=== PATIENT | male | born 1995 | race Caucasian/White ===

== ENCOUNTER 2021-03-27 12:40 | Emergency (ER) | payer MEDICAID, SELFPAY ==
--- NOTE | ~2021-03-27 | XR_ITS ---
EXAMINATION: XR LUMBOSACRAL SPINE CLINICAL INFORMATION: Low back pain COMPARISON: Previous lumbar spine x-ray June 2016 TECHNIQUE: Three views of the lumbosacral spine. FINDINGS: There is mild curvature of the lumbar spine to the left. Bone alignment is otherwise normal. No fracture or dislocation is seen. Disc spaces are normal. XR/XR lumbar spine 2-3V IMPRESSION: Mild curvature of the lower lumbar spine to the left.
[2021-03-27 13:01] VITALS: BP 135/69; PULSE 82; RESP 18; TEMP 36.6; O2SAT 97; BMI 34.8
[2021-03-27] MEDS: Ketorolac Tromethamine 30 MG/ML VIAL IM (13:11)
--- NOTE | 2021-03-27 13:29 | ED.BACK ---
HPI - Back Pain/Injury General Chief Complaint: Back Pain/Injury Stated Complaint: BACK PAIN Time Seen by Provider: 03/27/21 13:05 Source: patient Mode of arrival: ambulatory Limitations: no limitations History of Present Illness HPI Narrative: Patient presents to ED for back pain exacerbation. Patient has history of chronic back issues. Patient states this morning he bent down to dry his feet while getting up he felt sudden back pain. Patient denies falling to the ground, flank pain, abdominal pain, nausea, vomiting, dysuria, hematuria, testicular pain, fever, chills. Patient states pain is worse when he moves. Patient denies any urinary/bowel incontinence. Related Data Previous Rx's Medication Instructions Recorded cyclobenzaprine 10 mg PO TID PRN #18 tab 03/27/21 naproxen 500 mg PO BID PRN #28 tab 03/27/21 Allergies Allergy/AdvReac Type Severity Reaction Status Date / Time No Known Allergies Allergy Verified 03/27/21 13:03 Review of Systems Review of Systems: Yes all other systems are reviewed and are negative Constitutional: Constitutional: Reports as per HPI and Reports no additional constitutional complaints Eyes: Eyes: Reports as per HPI and Reports no additional eye complaints ENT: Reports system reviewed and no additional complaints, except as documented and Reports as per HPI Cardiovascular: Cardiovascular: Reports as per HPI and Reports no additional cardiovascular complaints Respiratory: Respiratory: Reports as per HPI and Reports no additional respiratory complaints Gastrointestinal: Gastrointestinal: Reports as per HPI and Reports no additional gastrointestinal complaints Genitourinary: Genitourinary: Reports no additional male genitourinary complaints and Reports as per HPI Musculoskeletal: Musculoskeletal: Reports no additional musculoskeletal complaints, Reports as per HPI and Reports back pain Neurologic: Reports system reviewed and no additional complaints, except as documented and Reports as per HPI Psychiatric: Psychiatric: Reports no additional psychiatric complaints and Reports as per HPI PMF Past Medical History Medical History (Updated 03/27/21 @ 14:36 by ANDREW Haq) No known health problems Social History Social History Advance Directives: No Advance Directives Information Provided: Yes Physical Exam Vital Signs: Vital Signs: Last Vital Signs Temp 97.9 F 03/27/21 13:01 Pulse 82 03/27/21 13:01 Resp 18 03/27/21 13:55 BP 135/69 03/27/21 13:01 Pulse Ox 97 05/10/21 13:01 Body Mass Index 34.8 Const: General: cooperative, healthy appearing, comfortable, no acute distress, well developed, alert, awake and Physically active Orientation/consciousness: patient oriented x3 HENMT: Head: Yes normal to inspection, Yes No palpable skull fracture present, Yes normocephalic and Yes atraumatic Eyes: General: appearance normal, both eyes and all related structures Neck: Neck: Yes normal visual inspection, Yes full ROM, Yes no lymphadenopathy, Yes no meningeal signs, Yes trachea midline, Yes supple and No tender Chest: Chest palpation & inspection: normal inspection of the chest and normal palpation of entire chest wall Resp: Effort & Inspection: normal respiratory effort and able to speak in complete sentences Auscultation: clear to auscultation bilaterally Cardio: Jugular venous distension: no JVD Heart sounds: S1 normal heart sound present and S2 normal heart sound present GI: Inspection: Yes normal to inspection and No abdominal wall ecchymosis Palpation (GI): Soft to palpation, not firm, nontender, no guarding and not rigid : General: No CVA tenderness and Yes no CVA tenderness Back/Spine/Pelvis: Back: no CVA tenderness, No CVA tenderness and back tenderness (lunbar spine tenderness) Skin: General skin exam: no rashes or lesions noted and elasticity normal Neuro: General: patient oriented x3, no meningeal signs and CN's II-XI intact bilaterally Extrem: General: Yes normal to inspection and Yes full ROM Psych: Appearance: grossly normal, well kempt and not disheveled Course Course Course Narrative: History physical exam indicate backs strain/muscle spasm. Not suspecting cord compression. Will give Toradol Reevaluation(s) Reevaluation #1: X-ray negative for any fractures or arthritis. Patient will be discharged with pain meds and muscle relaxers. Patient informed and take his father muscle relaxers. MDM - Back Pain/Injury MDM Narrative Medical decision making narrative: Back sprain Discharge Plan Discharge Clinical Impression: Low back sprain Patient Disposition: Home, Self-Care Instructions: Sprain (ED), Low Back Strain (ED) Additional Instructions: Return to the ED immediately for urinary/bowel incontinence abdominal pain, flank pain, fever, chills, testicular pain, hematuria, dysuria, nausea, vomiting, or any other concerning symptoms. Cyclobenzaprine causes drowsiness. Do not take at work or while driving. Prescriptions: New naproxen 500 mg tablet 500 mg PO BID PRN (Reason: pain) Qty: 28 RF: 0 cyclobenzaprine 10 mg tablet 10 mg PO TID PRN (Reason: back strain) Qty: 18 RF: 0 Referrals: Po,Jeanette Joseph MD [Primary Care Provider] - 2 days (Back sprain) Stand Alone Forms: Work/School Release Interventions: ED Discharge Assessment Last Done: 03/27/21 14:39 Discharge Date/Time: 03/27/21 14:45 Print Language: Citizen Of [place]
[2021-03-27 13:55] VITALS: RESP 18
== END 2021-03-27 14:45 | disposition home or self-care (01) ==
PROVIDERS: Emergency Provider Emergency Medicine; PCP Internal Medicine
DX: M54.5 Low back pain (principal); Z79.899 Other long term (current) drug therapy
CPT/HCPCS: 72100; 96372; 99283; 99284; J1885

== ENCOUNTER 2021-06-23 11:00 | Outpatient (RCR) | payer OTHER, SELFPAY ==
--- NOTE | 2021-06-21 15:39 | MHC.PT.EP ---
[facility] [place] Office [place] Office [place] Office [address] [phone] F: [phone] F: [phone] F: [phone] F: [phone] Physical Therapy Plan of Care Date of Evaluation: Date of Surgery: Diagnosis: thoracolumbar/ lumbosacral pain Assessment: pt is a 26 yo/m referred to PT for eval/treat for thoracolumbar and lumbopelvic pain. S/S consistent with lumbar and cervical dysfunction resulting in limiting pt from lifting heavy weights off of the floor and difficulty sleeping secondary to pain in low back and neck, limited R cervical rotation ROM, B lumbar rotation and flexion ROM, decreased neck and abdominal muscular strength while increased tissue tension of L QL and eractae spinae. pt also presents with increased thoracic kyphosis and decreased lumbar flexion. Pt is deemed an appropriate candidate to receive skilled PT in order to address his physical limitations to improve his functional ability. Frequency and Duration: The patient will be seen 2x/wk for 5wk Short Term Goals: initiate HEP with evidence of compliance pt will be able to do normal work tasks w/ minimal pain Fdc Goals: pt will report to PT that because of my, my sleep is only 1/2 of my normal amount; initial rating pain prevents me from sleeping at all (Andrew) pt will report to PT that he will be able to lift heavy weight without increased pain; initial rating - pain prevents me from lifting heavy weights off of the floor (Andrew) Treatment Plan: Modalities to reduce pain, spasms and effusion. Manual therapy to restore motion and function. Therapeutic exercise to improve strength and flexibility. Neuromuscular re-education for posture and balance. Therapeutic activities to return to functional activities of daily living. Electronically signed by: Jose Bernabe PT Please sign and return to therapist. Thank you for your referral.
--- NOTE | 2021-07-28 09:25 | MHC.PT.DC ---
[facility] [place] Office [place] Office [place] Office [address] [facility] [phone] F: [phone] F: [phone] F: [phone] F: [phone] Physical Therapy Discharge Report Diagnosis: thoracolumbar/ lumbosacral pain Date of Surgery: Date of Evaluation: 06/21/21 Date of Discharge: 07/28/21 Treatments to Date: 2 Cancellations to Date: No Shows to Date: Discharge Status: Patient Elected to Stop Discharge Summary: pt kirit all activities w/o pain, pt progressed to higher resistance w/ TB. pt ed about active standing during all activities. Electronically signed by: Jose Bernabe, PT Please sign and return to therapist. Thank you for your referral.
== END 2021-07-28 09:26 | disposition home or self-care (01) ==
LOC: HO.PTCHIC 11:00
PROVIDERS: PCP Internal Medicine; Visit Provider Internal Medicine
DX: M51.9 Unspecified thoracic, thoracolumbar and lumbosacral intervertebral disc disorder (principal); M54.5 Low back pain
CPT/HCPCS: 97110; 97161

== ENCOUNTER 2021-08-10 12:05 | Outpatient (REF) | payer OTHER, SELFPAY ==
--- NOTE | 2021-08-10 12:11 | EEG_ITS ---
This is a 16-channel EEG with an EKG lead. The patient is reported awake during the tracing. Background EEG rhythm is 10 to 12 hertz, 5 to 30 microvolt posteriorly, low amplitude fast anteriorly. Photic stimulation does not produce any significant abnormality. Hyperventilation is not performed. Cardiac lead does not reveal any significant abnormality. No sharp wave spikes or paroxysmal tendencies noted. IMPRESSION: Unremarkable EEG. MD HESHAM Cervantes/NANCY / [phone]
== END 2021-08-10 12:06 | disposition home or self-care (01) ==
LOC: HO.NEURO 12:05
PROVIDERS: PCP Internal Medicine; Visit Provider Internal Medicine
DX: R56.9 Unspecified convulsions (principal)
CPT/HCPCS: 95816

== ENCOUNTER 2022-01-03 08:28 | Outpatient (REF) | payer OTHER, SELFPAY ==
[2022-01-03 08:43] LABS: MANUAL DIFF FLAG NO
[2022-01-03 09:09] LABS: Basophils Percent Auto 0.2 % (0-2); Eosinophils Absolute Auto 0.1 X10*3/uL (0.0-0.4); Eosinophils Percent Auto 2.2 % (0-4); Hematocrit 46.1 % (42.0-52.0); Imm Gran Abs Auto 0.01 X10*3/uL (0.00-0.03); Imm Gran Pct Auto 0.2 % (0.0-0.4); Lymphocytes Absolute Auto 1.7 X10*3/uL (1.2-4.9); Lymphocytes Percent Auto 29.9 % (20-40); Mean Corpuscular HGB Conc 34.7 g/dl (31.0-36.0); Mean Corpuscular Hemoglobin 29.2 pg (27.0-33.0); Mean Corpuscular Volume 84.1 fL (80.0-98.0); Mean Platelet Volume 9.3 fL (9.4-12.4); Monocytes Absolute Auto 0.5 X10*3/uL (0.1-1.2); Monocytes Percent Auto 9.3 % (2-11); Neutrophils Absolute Auto 3.4 x10*3/uL (2.0-8.3); Neutrophils Percent Auto 58.2 % (45-73); Platelet Count 340 X10*3/uL (160-400); Red Blood Count 5.48 X10*6/uL (4.60-5.80); Red Cell Distribution Width 12.5 % (11.0-16.0); White Blood Count 5.8 X10*3/uL (4.8-10.8)
[2022-01-03 09:44] LABS: Alanine Aminotransferase 26 U/L (0-40); Albumin Level 4.7 g/dL (3.5-5.0); Alkaline Phosphatase 51 U/L (39-117); Anion Gap 10 (12-20); Aspartate Amino Transferase 25 U/L (5-37); Bilirubin Total 1.2 mg/dL (0.0-1.0); Blood Urea Nitrogen 12 mg/dL (9-16); Carbon Dioxide 27 mmol/L (22-29); Chloride 105 mmol/L (96-108); Cholesterol 177 mg/dL; Estimated Glomerular Filt Rate > 60; Glucose Random 103 mg/dL (60-115); HDL Cholesterol 37 mg/dL; LDL Cholesterol Calculated 122 mg/dl; Potassium 4.4 mmol/L (3.3-5.1); Sodium 138 mmol/L (135-145); Total Protein 7.5 g/dL (6.5-8.0); Triglycerides 91 mg/dL
[2022-01-03 10:04] LABS: Free T4 (Free Thyroxine) 0.88 ng/dL (0.71-1.85); Thyroid Stimulating Hormone 0.61 uIU/mL (0.32-4.0)
[2022-01-03 10:20] LABS: Folate > 20.0 ng/mL (> or = 4.0); Vitamin B12 586 pg/mL (200-900)
[2022-01-03 10:47] LABS: Appearance Urine CLEAR; Color Urine YELLOW; Glucose Urine UA NEG (NEG); Leukocyte Esterase Urine NEG (NEG); Nitrite Urine NEG (NEG); PH 6.5 (5.0-8.0); Specific Gravity - Urine 1.025 (1.005-1.025); Urine Blood TRACE (NEG); Urine Ketones 15 MG/DL (NEG); Urine Protein NEG (NEG-TRACE)
[2022-01-03 11:10] LABS: WBC Urine 0-2 /HPF (0-4)
[2022-01-03 11:11] LABS: Bacteria Urine TRACE /LPF; Squamous Epithelial Cell Urine TRACE /LPF
[2022-01-03 11:12] LABS: Mucus Urine TRACE /LPF
== END 2022-01-03 08:29 | disposition home or self-care (01) ==
LOC: HO.LAB 08:28
PROVIDERS: PCP Internal Medicine; Visit Provider Internal Medicine
DX: E66.9 Obesity, unspecified (principal); E78.00 Pure hypercholesterolemia, unspecified
CPT/HCPCS: 36415; 80053; 80061; 81001; 82607; 82746; 84439; 84443; 85025

== ENCOUNTER 2023-06-28 15:48 | Outpatient (AMB) | payer OTHER, SELFPAY ==
[2023-06-28 15:52] VITALS: BP 138/90; PULSE 65; O2SAT 97; BMI 42.7
--- NOTE | 2023-06-28 15:52 | MHC.PC.OV ---
Vital Signs 06/28/23 15:52 Height 5 ft 11 in Weight 306 lb BMI 42.7 BP 138/90 H Blood Pressure Location Lt brachial Position Sitting Pulse 65 Pulse Source Pulse Oximeter Temp Source Skin Pulse Oximetry (%) 97 Oxygen Delivery Method Room Air Intake Visit Reasons: PE Intake Note: Patient is here today for a physical. Interline Clerk Required: No Allergies house dust Allergy (Mild, Verified 06/28/23 15:52) Sneezing, sore throat Medication List - Last Reconciled 06/28/23 by Jeanette Martinez MD [id number] 250-250-65 mg (Excedrin Migraine) 1 tab PO Q4-6H PRN blood pressure monitor (Blood Pressure Kit) As directed Tobacco use date assessed: 06/28/23 Dental Screening Dental Screen Date: 06/28/23 Did you have a dental visit in the last 12 months?: Yes Did you have a dental problem in the last 6 months where you did not have access to dental care?: No Was dental information given to patient?: Patient has dentist HPI PE HPI Details 28-year-old morbidly obese male with restless leg syndrome impaired glucose tolerance labile hypertension coming in for physical exam patient was last seen in January 2023 has mild obstructive sleep apnea and neck pain patient is here for follow-up adjustment of blood pressure medication recently done. BP at home- has been good and decline taking med PFSH Medical History Erectile dysfunction Insomnia Inverse psoriasis Laceration of left knee with foreign body No known health problems Obesity (BMI 30-39.9) Seizures Tinea cruris Surgical History (Updated 06/25/22 @ 15:45 by GLADYS Nguyen) No pertinent past surgical history Family History Maternal Grandmother Heart attack Paternal Grandmother Breast cancer Other Diabetes Hypertension Social History (Updated 06/28/23 @ 16:15 by Jeanette Martinez MD) Housing: Apartment Alcohol intake: current Alcohol intake frequency: holidays/special occasions only Patient Tobacco Use Status: Former Tobacco user Years Smoked: quit 6 week week and cigarettes 20 years old stopped e-Cigarette/Vaping Use: Never Used Second Hand Smoke Exposure: Yes Substance Use Type: Marijuana service: No Current occupational status: employed Cognitive needs: No Hearing needs: No Vision needs: Yes Questionnaire PHQ-9 Over the last 2 weeks, how often have you been bothered by any of the following problems? 1. Little interest or pleasure in doing things: not at all 2. Feeling down, depressed, or hopeless: nearly every day 3. Trouble falling or staying asleep, or sleeping too much: nearly every day 4. Feeling tired or having little energy: nearly every day 5. Poor appetite or overeating: nearly every day 6. Feeling bad about yourself - or that you are a failure or have let yourself or your family down: several days 7. Trouble concentrating on things, such as reading the newspaper or watching television: not at all 8. Moving or speaking so slowly that other people could have noticed. Or the opposite - being so fidgety or restless that you have been moving around a lot more than usual: not at all 9. Thoughts that you would be better off or of hurting yourself in some way: not at all Total score: 13 Depression Screening Interpretation: Positive Source: Developed by Drs. Brady Garibay, Jodi Gill, Abdi Hardy and colleagues, with an educational trinity from [employer]. Thrive Questionnaire Date Thrive assessed: 01/22/23 AUDIT C Alcohol Use Questionnaire (AUDIT-C) 1. How often do you have a drink containing alcohol?: Monthly or less 2. How many drinks containing alcohol do you have on a typical day when you are drinking?: 1 or 2 3. How often do you have six or more drinks on one occasion?: Never Total Score: 1 LYRIC-7 AMB Questionnaire LYRIC-7 Date LYRIC - 7 assessed: 06/28/23 Feeling nervous, anxious, or on edge: 2 = More than half the days Not being able to stop or control worryin = More than half the days Worrying too much about different things: 2 = More than half the days Trouble relaxin = Not at all Being so restless that it is hard to sit still: 2 = More than half the days Becoming easily annoyed or irritable: 0 = Not at all Feeling afraid as if something awful might happen: 0 = Not at all Total LYRIC-7 score (0-4 normal; 5-9 mild; 10-14 moderate; 15-21 severe): 8 Source: Developed by Drs. Brady Garibay, Jodi Gill, Abdi Hardy and colleagues, with an educational trinity from [employer]. Review of Systems Const Denies poor appetite and Denies weakness Eyes Denies no additional complaints ENT Reports Normal hearing present, Denies dizziness, Denies nasal congestion, Denies tinnitus and Denies sore throat Card Denies chest pain, Denies syncope, Denies rapid heart rate and Denies dyspnea Resp Denies cough and Denies dyspnea GI Denies change in stool character, Reports constipation, Denies diarrhea, Denies nausea and Denies vomiting Denies dysuria and Denies urinary frequency Neuro Reports Normal hearing present, Denies confusion, Denies dizziness, Denies syncope and Denies weakness Psych Denies confusion Physical exam (Primary Care) Vital Signs: Last Vital Signs Pulse 65 06/28/23 15:52 BP 138/90 H 06/28/23 15:52 Pulse Ox 97 06/28/23 15:52 Oxygen Delivery Method Room Air 06/28/23 15:52 BMI result Body Mass Index 42.7 Tobacco/Smoking Status: Tobacco use Status Tobacco use date assessed 06/28/23 06/28/23 15:53 Patient Tobacco Use Status Former Tobacco user 06/28/23 15:53 e-Cigarette/Vaping Use Never Used 06/28/23 15:53 PHQ-9: PHQ-9 Score PHQ-9: Total score 13 06/28/23 16:06 Depression Screening Interpretation: Positive Thrive Assessment: Date of Thrive Assessment Date Thrive assessed 01/22/23 06/28/23 15:53 Const General: No confusion Orientation/consciousness: No confusion HENMT Head: Yes normocephalic Ears: external ears normal and TM's normal bilaterally Face and sinus: Yes normal facial exam Mouth: moist mucous membranes Throat: Yes tonsils normal Eyes Conjunctivae: conjunctivae normal Pupils: Equal, round and reactive pupils present and Pupil accommodation reflex normal Direct Ophthalmoscopy: normal light reflex Neck Neck: No lymphadenopathy Thyroid: Thyroid normal Chest Chest palpation & inspection: normal inspection of the chest Resp Other: fine wheezing noted Effort & Inspection: normal respiratory effort Auscultation: no crackles, wheezes and lung sounds not diminished Cardio Rate: regular rate Rhythm: regular rhythm Peripheral pulses: radial pulses present and dorsalis pedis present GI Other: visual negative Palpation (GI): no masses Auscultation: normal bowel sounds and normoactive bowel sounds Rectal Exam - Male: Yes deferred Other: groin dry scaly rash Skin General skin exam: no rashes or lesions noted Rashes: no rashes Neuro General: No confusion Cranial nerves: Yes Equal, round and reactive pupils present and Yes Normal hearing present Cognition (Neuro): normal cognition Gait exam (Neuro): Normal gait present Motor exam (neuro): 5/5 motor strength present throughout Deep tendon reflexes (DTR's): Right brachioradialis reflex intensity grade: 2+, Left brachioradialis reflex intensity grade: 2+, Right patellar reflex intensity grade: 2+ and Left patellar reflex intensity grade: 2+ Extrem General: No edema Assessment and Plan Assessment & Plan (1) Annual physical exam: Code(s): Z00.00 - Encounter for general adult medical examination without abnormal findings (2) Labile hypertension: Code(s): R09.89 - Other specified symptoms and signs involving the circulatory and respiratory systems Plan: Continue with blood pressure medication. Decrease salt intake and exercise placed on lisinopril 10 mg once a day reminded to get blood work done (3) Impaired fasting blood sugar: Code(s): R73.01 - Impaired fasting glucose Plan: Decrease the amount of carbohydrate intake, pasta, bread, rice and potatoes are all sugar and that is aside from all the sweet stuff, remember that fruits are good but they are Sweet also. (4) Restless leg syndrome: Code(s): G25.81 - Restless legs syndrome (5) Mild obstructive sleep apnea: Comment: cannot tolerate CPAP Code(s): G47.33 - Obstructive sleep apnea (adult) (pediatric) (6) Generalized anxiety disorder: Code(s): F41.1 - Generalized anxiety disorder (7) Hematuria: Code(s): R31.9 - Hematuria, unspecified (8) Hearing difficulty: Code(s): H91.90 - Unspecified hearing loss, unspecified ear (9) Tinea cruris: Code(s): B35.6 - Tinea cruris Orders: Orders UA CC w/rflx Micro + Cult Today R30.0 - Dysuria, R31.9 - Hematuria, unspecified Referrals Speech and Hearing Referral H91.90 - Unspecified hearing loss, unspecified ear Medications: New clotrimazole 1% 1 appl topical BID 45 grams 0RF 4 weeks B35.6 - Tinea cruris Coding Level of Care Code New Pt Prev Care [id number] Diagnoses Annual physical exam Z00.00 Labile hypertension R09.89 Impaired fasting blood sugar R73.01 Restless leg syndrome G25.81 Mild obstructive sleep apnea G47.33 Generalized anxiety disorder F41.1 Hematuria R31.9 Hearing difficulty H91.90 Tinea cruris B35.6
== END 2023-06-28 16:40 | disposition home or self-care (01) ==
PROVIDERS: PCP Internal Medicine; Visit Provider Internal Medicine
DX: Z00.00 Encounter for general adult medical examination without abnormal findings (principal); R09.89 Other specified symptoms and signs involving the circulatory and respiratory systems; R73.01 Impaired fasting glucose; G25.81 Restless legs syndrome; G47.33 Obstructive sleep apnea (adult) (pediatric); F41.1 Generalized anxiety disorder; R31.9 Hematuria, unspecified; H91.90 Unspecified hearing loss, unspecified ear; B35.6 Tinea cruris
CPT/HCPCS: 99385; 99395

== ENCOUNTER 2023-06-29 10:08 | Outpatient (REF) | payer OTHER, SELFPAY ==
[2023-06-29 10:37] LABS: MANUAL DIFF FLAG NO
[2023-06-29 11:16] LABS: Estimated Average Glucose 94 mg/dL; Hemoglobin A1c % 4.9 %
[2023-06-29 11:19] LABS: Basophils Percent Auto 0.2 % (0-2); Eosinophils Absolute Auto 0.3 X10*3/uL (0.0-0.4); Hematocrit 45.1 % (42.0-52.0); Hemoglobin 15.7 g/dl (14.0-18.0); Imm Gran Abs Auto 0.04 X10*3/uL (0.00-0.03); Imm Gran Pct Auto 0.4 % (0.0-0.4); Lymphocytes Absolute Auto 2.7 X10*3/uL (1.2-4.9); Lymphocytes Percent Auto 30.1 % (20-40); Mean Corpuscular HGB Conc 34.8 g/dl (31.0-36.0); Mean Corpuscular Hemoglobin 28.5 pg (27.0-33.0); Mean Platelet Volume 9.4 fL (9.4-12.4); Monocytes Absolute Auto 0.9 X10*3/uL (0.1-1.2); Monocytes Percent Auto 9.7 % (2-11); Neutrophils Absolute Auto 5.1 x10*3/uL (2.0-8.3); Neutrophils Percent Auto 56.6 % (45-73); Platelet Count 345 X10*3/uL (160-400); Red Cell Distribution Width 12.5 % (11.0-16.0)
[2023-06-29 11:24] LABS: Appearance Urine Clear; Color Urine Yellow; Glucose Urine UA Negative (Negative); Leukocyte Esterase Urine Negative (Negative); Nitrite Urine Negative (Negative); PH 5.5 (5.0-9.0); Specific Gravity - Urine 1.025 (1.005-1.025); UMIC TRIGGER UACC YES; Urine Blood Trace (Negative); Urine Ketones Negative (Negative); Urine Protein Negative (Neg-Trace)
[2023-06-29 11:39] LABS: Bacteria Urine None Seen (None Seen); Hyaline Casts Urine 0-2 /LPF (0-2); Squamous Epithelial Cell Urine 0-2 /HPF (0-2); WBC Urine 0-5 /HPF (0-5)
[2023-06-29 11:56] LABS: Alanine Aminotransferase 33 U/L (0-40); Albumin Level 4.5 g/dL (3.5-5.0); Alkaline Phosphatase 50 U/L (39-117); Anion Gap 11 (12-20); Aspartate Amino Transferase 23 U/L (5-37); Bilirubin Total 0.6 mg/dL (0.0-1.0); Blood Urea Nitrogen 11 mg/dL (9-16); Calcium 10.1 mg/dL (8.4-10.2); Carbon Dioxide 27 mmol/L (22-29); Chloride 107 mmol/L (96-108); Cholesterol 145 mg/dL; Estimated Glomerular Filt Rate > 60; Glucose Random 98 mg/dL (60-115); HDL Cholesterol 30 mg/dL; LDL Cholesterol Calculated 79 mg/dl; Potassium 4.1 mmol/L (3.3-5.1); Sodium 141 mmol/L (135-145); Total Protein 7.4 g/dL (6.5-8.0); Triglycerides 180 mg/dL
[2023-06-29 12:00] LABS: Free T4 (Free Thyroxine) 0.89 ng/dL (0.71-1.85); Thyroid Stimulating Hormone 1.28 uIU/mL (0.32-4.0)
[2023-06-29 12:16] LABS: Folate 13.7 ng/mL (> or = 4.0); Vitamin B12 502 pg/mL (200-900)
== END 2023-06-29 10:09 | disposition home or self-care (01) ==
LOC: HO.LAB 10:08
PROVIDERS: PCP Internal Medicine; Visit Provider Internal Medicine
DX: R73.01 Impaired fasting glucose (principal); E78.00 Pure hypercholesterolemia, unspecified
CPT/HCPCS: 36415; 80053; 80061; 81001; 82607; 82746; 83036; 84439; 84443; 85025

== ENCOUNTER 2023-07-09 11:15 | Outpatient (REF) | payer OTHER, SELFPAY ==
--- NOTE | ~2023-07-09 | US_ITS ---
EXAMINATION: US RETROPERITONEAL LIMITED (RENAL ONLY) CLINICAL INFORMATION: Hematuria, unspecified. COMPARISON: X-ray abdomen KUB 06/23/2018. TECHNIQUE: Real-time imaging of the kidneys. Limited visualization due to bowel gas. FINDINGS: RIGHT KIDNEY: 11.4 x 6.4 x 6.6 cm (SAG x AP x TRV). No hydronephrosis. No renal calculi. Renal cortical thickness is normal. Limited visualization. LEFT KIDNEY: 13.0 x 5.9 x 5.7 cm (SAG x AP x TRV). No hydronephrosis. No renal calculi. Renal cortical thickness is normal. Limited visualization. US/US renal BI IMPRESSION: No hydronephrosis. No renal calculi. Renal cortical thickness is normal. Limited visualization. CT scan could be considered for further evaluation for this patient with hematuria.
== END 2023-07-09 11:16 | disposition home or self-care (01) ==
LOC: HO.US 11:15
PROVIDERS: PCP Internal Medicine; Visit Provider Internal Medicine
DX: R31.9 Hematuria, unspecified (principal)
CPT/HCPCS: 76775

== ENCOUNTER 2023-08-12 09:45 | Outpatient (REF) | payer OTHER, SELFPAY ==
--- NOTE | ~2023-08-12 | CT_ITS ---
EXAMINATION: CT ABDOMEN AND PELVIS WITHOUT AND WITH CONTRAST CLINICAL INFORMATION: Hematuria. COMPARISON: Renal ultrasound 07/09/2023. TECHNIQUE: Multidetector volumetric imaging was performed of the abdomen and pelvis before and after the IV administration of 85 mL of Omnipaque 350 intravenous contrast. Sagittal and coronal reformatted images were obtained on the technologist's workstation. This CT examination was performed using dose optimization techniques as appropriate, variously including the following: *Automated exposure control *Adjustment of mA and/or kV according to patient size (this includes techniques or standardized protocols for targeted exams where dose is matched to indication/reason for exam; i.e. extremities or head) *Use of iterative reconstruction technique DLP: 1496 mGy-cm. FINDINGS: LUNG BASES: The visualized lung bases are unremarkable. LIVER, GALLBLADDER, AND BILIARY TREE: The liver is enlarged at 19.2 cm in cephalocaudad dimension and demonstrates decreased attenuation consistent with hepatic steatosis. Focal fatty sparing is present adjacent to the gallbladder. No focal hepatic lesion or biliary ductal dilatation is present. The gallbladder is unremarkable with no evidence of radiopaque gallstones, gallbladder wall thickening, or obvious pericholecystic inflammatory changes. PANCREAS: Unremarkable. SPLEEN: Unremarkable. ADRENAL GLANDS: Unremarkable. KIDNEYS AND URETERS: The kidneys are normal in size, shape, and attenuation. In the mid left kidney, there is a 1.1 cm mass present which on noncontrast imaging is almost isoattenuating with the surrounding kidney at 26 Hounsfield units. After IV contrast, Hounsfield units range from 14 to 45 Hounsfield units. I suspect this is a Bosniak class II cyst but the mass is too small for adequate characterization. No other renal masses. No hydronephrosis, hydroureter, or calculi seen. No perinephric stranding. BLADDER: Unremarkable. GASTROINTESTINAL TRACT: The small and large bowel are unremarkable aside from scattered colonic diverticula without diverticulitis. The appendix is unremarkable. ABDOMINAL WALL: No significant hernia is appreciated. Tiny right inguinal hernia present containing only fat. LYMPH NODES: No retroperitoneal lymphadenopathy. VASCULAR: Unremarkable. PELVIC VISCERA: The prostate and seminal vesicles are unremarkable. OSSEOUS STRUCTURES: Unremarkable. CT/CT abdomen pelvis wo/w IV con IMPRESSION: 1. A cause for the patient's hematuria has not been found. 2. There is a 1.1 cm mass in the left kidney which is almost isoattenuating with the surrounding kidney. I suspect this is a Bosniak class II benign cyst but the mass is too small for adequate characterization. A followup targeted ultrasound could be performed for further evaluation or alternatively, MRI should be diagnostic. 3. Enlarged fatty liver. 4. Colonic diverticulosis without diverticulitis. 5. Tiny right inguinal hernia containing only fat. Fleischner guidelines were followed.
[2023-08-12] MEDS: iohexoL 350 MG/ML 100 ML INFUS..BTL IV (10:32)
== END 2023-08-12 09:46 | disposition home or self-care (01) ==
LOC: HO.CT 09:45
PROVIDERS: Visit Provider Internal Medicine
DX: R31.9 Hematuria, unspecified (principal)
CPT/HCPCS: 74178; Q9967

== ENCOUNTER 2023-10-31 20:30 | Emergency (ER) | payer OTHER, SELFPAY ==
[2023-10-31 20:53] VITALS: BP 154/102; PULSE 82; RESP 18; TEMP 36.6; O2SAT 98; BMI 34.9
[2023-10-31 21:38] LABS: MANUAL DIFF FLAG NO
[2023-10-31 21:46] LABS: Basophils Percent Auto 0.3 % (0-2); Eosinophils Absolute Auto 0.2 X10*3/uL (0.0-0.4); Eosinophils Percent Auto 2.7 % (0-4); Hematocrit 43.6 % (42.0-52.0); Hemoglobin 15.6 g/dl (14.0-18.0); Imm Gran Abs Auto 0.02 X10*3/uL (0.00-0.03); Imm Gran Pct Auto 0.3 % (0.0-0.4); Lymphocytes Absolute Auto 2.4 X10*3/uL (1.2-4.9); Lymphocytes Percent Auto 31.1 % (20-40); Mean Corpuscular HGB Conc 35.8 g/dl (31.0-36.0); Mean Platelet Volume 9.3 fL (9.4-12.4); Monocytes Absolute Auto 0.6 X10*3/uL (0.1-1.2); Monocytes Percent Auto 8.1 % (2-11); Neutrophils Absolute Auto 4.5 x10*3/uL (2.0-8.3); Neutrophils Percent Auto 57.5 % (45-73); Platelet Count 403 X10*3/uL (160-400); Red Blood Count 5.38 X10*6/uL (4.60-5.80); Red Cell Distribution Width 12.7 % (11.0-16.0); White Blood Count 7.8 X10*3/uL (4.8-10.8)
[2023-10-31 21:57] LABS: Alanine Aminotransferase 33 U/L (0-40); Albumin Level 4.7 g/dL (3.5-5.0); Alkaline Phosphatase 60 U/L (39-117); Anion Gap 15 (12-20); Aspartate Amino Transferase 21 U/L (5-37); Bilirubin Total 0.3 mg/dL (0.0-1.0); Blood Urea Nitrogen 11 mg/dL (9-16); Calcium 10.1 mg/dL (8.4-10.2); Carbon Dioxide 25 mmol/L (22-29); Chloride 105 mmol/L (96-108); Creatinine Clr Calc Pharmacy 177.6; Estimated Glomerular Filt Rate > 60; Glucose Random 115 mg/dL (60-115); Potassium 3.6 mmol/L (3.3-5.1); Sodium 141 mmol/L (135-145); Total Protein 7.9 g/dL (6.5-8.0)
[2023-10-31 23:01] VITALS: BP 152/101; PULSE 83; RESP 14
[2023-10-31 23:12] LABS: Appearance Urine Clear; Color Urine Yellow; Glucose Urine UA Negative (Negative); Leukocyte Esterase Urine Negative (Negative); Nitrite Urine Negative (Negative); PH 5.5 (5.0-9.0); Specific Gravity - Urine 1.025 (1.005-1.025); Urine Blood Negative (Negative); Urine Ketones Negative (Negative); Urine Protein Negative (Neg-Trace)
--- NOTE | 2023-10-31 23:19 | ED.GENADULT ---
HPI - General Adult General Chief complaint: Back Pain/Injury Stated complaint: back spasm/painful sitting,walking Time Seen by Provider: 10/31/23 23:11 Source: patient, RN notes reviewed and old records reviewed Mode of arrival: ambulatory Limitations: no limitations History of Present Illness HPI narrative: 28-year-old male presents for evaluation of right lower back pain Patient reports that he had an injury about a year and half ago after a fall. He had negative x-rays at that time Patient states that he has had back pain ever since. However over the last 3-4 days he has had severe right lower back pain. The pain radiates down into his right leg He denies any bladder or bowel incontinence or retention Denies any fevers, chills pain Denies any recent falls Related Data Home Medications Medication Instructions Recorded Confirmed [id number] 1 tab PO Q4-6H PRN 06/28/23 06/28/23 mg-250 mg-65 mg tablet (Excedrin Migraine) Previous Rx's Medication Instructions Recorded blood pressure monitor (Blood #1 ea 01/02/22 Pressure Kit) clotrimazole 1 % topical cream 1 appl topical BID 4 weeks #45 06/28/23 grams dexamethasone 4 mg tablet 4 mg PO BID #6 tabs 10/31/23 tramadol 50 mg tablet 50 mg PO Q6H PRN severe pain 10/31/23 (scale score 7-10) #12 tabs Allergies Allergy/AdvReac Type Severity Reaction Status Date / Time house dust Allergy Mild Sneezing, Verified 10/31/23 21:02 sore throat Review of Systems Constitutional: Constitutional: Denies chills, Denies fever(s) and Denies headache(s) Eyes: Eyes: Denies blurry vision ENT: Denies headache(s) Cardiovascular: Cardiovascular: Denies chest pain and Denies dyspnea Respiratory: Respiratory: Denies cough and Denies dyspnea Gastrointestinal: Gastrointestinal: Denies abdominal pain Musculoskeletal: Musculoskeletal: Reports back pain, Denies numbness and Reports tingling Neurologic: Denies headache(s), Denies numbness and Reports tingling PMFSH Past Medical History Medical History (Updated 10/31/23 @ 23:22 by Julian Mehta) Tinea cruris Laceration of left knee with foreign body Seizures Inverse psoriasis Insomnia Obesity (BMI 30-39.9) Erectile dysfunction No known health problems Surgical History (Updated 06/25/22 @ 15:45 by GLADYS Nguyen) No pertinent past surgical history Family History Family History Maternal Grandmother Heart attack Paternal Grandmother Breast cancer Other Diabetes Hypertension Social History Social History (Updated 06/28/23 @ 16:15 by Jeanette Martinez MD) Housing: Apartment Alcohol intake: current Alcohol intake frequency: does not drink Patient Tobacco Use Status: Former Tobacco user Years Smoked: quit 6 week week and cigarettes 20 years old stopped e-Cigarette/Vaping Use: Never Used Second Hand Smoke Exposure: Yes Substance Use Type: Marijuana service: No Current occupational status: employed Cognitive needs: No Hearing needs: No Vision needs: Yes Physical Exam ED Vital Signs: Vital Signs - 24 hr 10/31/23 20:53 10/31/23 23:01 Temperature 97.9 F Pulse Rate 82 83 Respiratory Rate 18 14 Blood Pressure 154/102 H 152/101 H Pulse Oximetry 98 Oxygen Delivery Method Room Air BMI result Body Mass Index 34.9 Const General: healthy appearing, comfortable, no acute distress, alert and awake Nutritional Appearance: well nourished Orientation/consciousness: patient oriented x3 HENMT Head: Yes normocephalic and Yes atraumatic Eyes Eyelids: Yes eyelids normal Conjunctivae: conjunctivae normal Sclerae: sclerae normal Corneas: corneas normal Pupils: Equal, round and reactive pupils present EOM: EOMs intact bilaterally Neck Neck: Yes full ROM Resp Effort & Inspection: normal respiratory effort, able to speak in complete sentences and not labored GI Inspection: No distended Palpation (GI): Soft to palpation, not firm, nontender, no guarding and not rigid Back/Spine/Pelvis Other: Tenderness to the right lumbar sacral region. Straight leg raise positive on right. Skin General skin exam: elasticity normal Neuro Other: Strength 5/5 to the bilateral lower extremities in all major muscle groups General: patient oriented x3 Cranial nerves: Yes Equal, round and reactive pupils present and Yes Bilaterally intact EOM present Cognition (Neuro): normal cognition Extrem Other: Moving all extremities well without any obvious deformities Medical Decision Making Medical Decision Making MDM Narrative: 28-year-old male presents for evaluation of right lower back pain. He has a history of back pain. No recent injury. No warning signs for cauda equina syndrome. Patient is not an IV drug abuser. Symptoms most consistent with sciatica. Will treat with steroids and analgesia. He will follow-up with his PCP Differential Diagnosis Differential Diagnoses: The differential diagnosis associated with the presentation includes Lumbar radiculopathy Sciatica Lumbar strain Back pain Lab Data MDM Lab Attestation statement: I reviewed the patient's lab results. No leukocytosis or anemia. No significant electrolyte abnormalities. Normal renal function. UA is clear without signs of infection or hematuria 10/31/23 21:33 10/31/23 21:33 Labs: Lab Results 10/31/23 10/31/23 Range/Units 21:33 23:05 WBC 7.8 (4.8-10.8) X10*3/uL RBC 5.38 (4.60-5.80) X10*6/uL Hgb 15.6 (14.0-18.0) g/dl Hct 43.6 (42.0-52.0) % MCV 81.0 (80.0-98.0) fL MCH 29.0 (27.0-33.0) pg MCHC 35.8 (31.0-36.0) g/dl RDW 12.7 (11.0-16.0) % Plt Count 403 H (160-400) X10*3/uL MPV 9.3 L (9.4-12.4) fL Immature Gran % (Auto) 0.3 (0.0-0.4) % Neut % (Auto) 57.5 (45-73) % Lymph % (Auto) 31.1 (20-40) % Woodward % (Auto) 8.1 (2-11) % Eos % (Auto) 2.7 (0-4) % Baso % (Auto) 0.3 (0-2) % Lymph # (Auto) 2.4 (1.2-4.9) X10*3/uL Woodward # (Auto) 0.6 (0.1-1.2) X10*3/uL Eos # (Auto) 0.2 (0.0-0.4) X10*3/uL Baso # (Auto) 0.0 (0.0-0.2) X10*3/uL Abs Immat Gran (auto) 0.02 (0.00-0.03) X10*3/uL Absolute Neuts (auto) 4.5 (2.0-8.3) x10*3/uL Absolute Nucleated RBC 0.000 (0.0-0.012) X10*3/uL Nucleated RBC % (auto) 0.0 (0.0-0.2) /100WBC Sodium 141 (135-145) mmol/L Potassium 3.6 (3.3-5.1) mmol/L Chloride 105 (96-108) mmol/L Carbon Dioxide 25 (22-29) mmol/L Anion Gap 15 (12-20) BUN 11 (9-16) mg/dL Creatinine 0.80 (0.5-1.4) mg/dL Estim Creat Clear Calc 177.6 Estimated GFR > 60 Random Glucose 115 (60-115) mg/dL Calcium 10.1 (8.4-10.2) mg/dL Total Bilirubin 0.3 (0.0-1.0) mg/dL AST 21 (5-37) U/L ALT 33 (0-40) U/L Alkaline Phosphatase 60 (39-117) U/L Total Protein 7.9 (6.5-8.0) g/dL Albumin 4.7 (3.5-5.0) g/dL Urine Color Yellow Urine Appearance Clear Urine pH 5.5 (5.0-9.0) Ur Specific Crawford 1.025 (1.005-1.025) Urine Protein Negative (Neg-Trace) mg/dL Urine Glucose (UA) Negative (Negative) mg/dL Urine Ketones Negative (Negative) mg/dL Urine Blood Negative (Negative) Urine Nitrite Negative (Negative) Ur Leukocyte Esterase Negative (Negative) Discharge Plan Discharge Clinical Impression: Acute low back pain Patient Disposition: Home, Self-Care Instructions: Sciatica (ED) Additional Instructions: Your back pain is likely related to a pinched nerve called sciatica. You may use ibuprofen/Tylenol as needed for pain Use tramadol for more severe, breakthrough pain This may make you sleepy, did not drink alcohol or drive after taking it Use dexamethasone twice daily for the next 3 days Follow-up with your primary doctor You may benefit from an outpatient MRI Prescriptions: New dexamethasone 4 mg tablet 4 mg PO BID Qty: 6 0RF tramadol 50 mg tablet 50 mg PO Q6H PRN (Reason: severe pain (scale score 7-10)) Qty: 12 0RF No Action Excedrin Migraine 250-250-65 mg tablet 1 tab PO Q4-6H PRN clotrimazole 1 % cream 1 appl topical BID 28 Days Qty: 45 0RF (DME) blood pressure monitor [Blood Pressure Kit] Kit See Rx Instructions .ROUTE .MEDSUPPLY Qty: 1 0RF Rx Instructions: As directed Stand Alone Forms: Work/School Release
[2023-11-01] MEDS: dexAMETHasone 4 MG TABLET PO (00:01)
[2023-11-01] MEDS: Ketorolac Tromethamine 30 MG/ML VIAL IM (00:01)
== END 2023-11-01 00:07 | disposition home or self-care (01) ==
PROVIDERS: Emergency Provider Internal Medicine; PCP Internal Medicine
DX: M54.41 Lumbago with sciatica, right side (principal); Z79.899 Other long term (current) drug therapy; Z87.891 Personal history of nicotine dependence
CPT/HCPCS: 36415; 80053; 81003; 85025; 96372; 99284; J1885; J8540

== ENCOUNTER 2023-11-13 15:48 | Outpatient (AMB) | payer OTHER, SELFPAY ==
[2023-11-13 15:50] VITALS: BP 160/100; PULSE 100; O2SAT 96; BMI 42.1
--- NOTE | 2023-11-13 15:50 | MHC.PC.OV ---
Vital Signs 11/13/23 15:50 11/13/23 16:42 Height 5 ft 11 in Weight 302 lb BMI 42.1 BP 160/100 H 140/90 H Blood Pressure Location Lt brachial Lt brachial Position Sitting Sitting Pulse 100 Pulse Source Pulse Oximeter Pulse Oximetry (%) 96 Oxygen Delivery Method Room Air Intake Visit Reasons: Back Pain Intake Note: pt is here for ongoing back pain that been happening since oct 30 2023. pt went of the hospital the following day he was given tramadol and dexmethasone. Consumer Services Advisor Required: No Accompanied by: Self / Same As Patient Allergies house dust Allergy (Mild, Verified 11/13/23 15:50) Sneezing, sore throat Medication List - Last Reconciled 11/13/23 by Jeanette Martinez MD [id number] 250-250-65 mg (Excedrin Migraine) 1 tab PO Q4-6H PRN blood pressure monitor (Blood Pressure Kit) As directed clotrimazole 1% 1 appl topical BID 4 weeks dexamethasone 4 mg PO BID tramadol 50 mg PO Q6H PRN Tobacco use date assessed: 06/28/23 Dental Screening Dental Screen Date: 11/13/23 Did you have a dental visit in the last 12 months?: No Did you have a dental problem in the last 6 months where you did not have access to dental care?: No Was dental information given to patient?: Yes HPI Back Pain HPI Details 28-year-old obese male with hypertension impaired glucose tolerance obstructive sleep apnea mild restless leg syndrome generalized anxiety disorder last seen for physical in June 2023. Patient is here for follow-up review of the notes had ER visit for back injury lower back pain right this has been intermittently happening for about a year diagnosis the day given sciatica and was given steroids and tramadol. Patient had hematuria and a CT scan was done noted left kidney mass benign cyst patient has been advised to follow-up ultrasound. This was in July 2023 fatty liver noted diverticular disease noted and a tiny right inguinal hernia seen. Had a long discussion with the MRI result and for the lower back pain. Discussed about tramadol being 3rd line in the pain medication [facility] Medical History (Updated 11/02/23 @ 00:02 by Background Elodia) Tinea cruris Laceration of left knee with foreign body Seizures Inverse psoriasis Insomnia Obesity (BMI 30-39.9) Erectile dysfunction No known health problems Surgical History No pertinent past surgical history Family History Maternal Grandmother Heart attack Paternal Grandmother Breast cancer Other Diabetes Hypertension Social History Housing: Apartment Alcohol intake: current Alcohol intake frequency: does not drink Patient Tobacco Use Status: Former Tobacco user Years Smoked: quit 6 week week and cigarettes 20 years old stopped e-Cigarette/Vaping Use: Never Used Second Hand Smoke Exposure: Yes Substance Use Type: Marijuana service: No Current occupational status: employed Cognitive needs: No Hearing needs: No Vision needs: Yes Questionnaire Thrive Questionnaire Date Thrive assessed: 01/22/23 LYRIC-7 AMB Questionnaire LYRIC-7 Date LYRIC - 7 assessed: 06/28/23 Source: Developed by Drs. Brady Garibay, Jodi Gill, Abdi Hardy and colleagues, with an educational trinity from [employer] Physical exam (Primary Care) Vital Signs: Last Vital Signs Pulse 100 11/13/23 15:50 BP 140/90 H 11/13/23 16:42 Pulse Ox 96 11/13/23 15:50 Oxygen Delivery Method Room Air 11/13/23 15:50 BMI result Body Mass Index 42.1 Tobacco/Smoking Status: Tobacco use Status Tobacco use date assessed 06/28/23 11/13/23 15:52 Patient Tobacco Use Status Former Tobacco user 11/13/23 15:52 e-Cigarette/Vaping Use Never Used 11/13/23 15:52 Thrive Assessment: Date of Thrive Assessment Date Thrive assessed 01/22/23 11/13/23 15:52 Const General: alert; No acute distress Eyes Conjunctivae: conjunctivae normal Resp Auscultation: clear to auscultation bilaterally Cardio Rate: regular rate Rhythm: regular rhythm GI Inspection: Yes normal to inspection Extrem General: Yes normal to inspection and No edema Assessment and Plan Assessment & Plan (1) Left kidney mass: Comment: July 2023 Code(s): N28.89 - Other specified disorders of kidney and ureter Plan: Ultrasound was done a month before with no significant finding. (2) Right inguinal hernia: Comment: 07/2023 Code(s): K40.90 - Unilateral inguinal hernia, without obstruction or gangrene, not specified as recurrent Plan: Avoid lifting (3) Diverticulosis: Comment: 07/2023 Code(s): K57.90 - Diverticulosis of intestine, part unspecified, without perforation or abscess without bleeding Plan: Keep well hydrated avoid being constipated (4) Hematuria: Code(s): R31.9 - Hematuria, unspecified Plan: Will follow-up on this (5) Labile hypertension: Code(s): R09.89 - Other specified symptoms and signs involving the circulatory and respiratory systems Plan: Patient presently on no medication. (6) Morbidly obese: Code(s): E66.01 - Morbid (severe) obesity due to excess calories Plan: Diet and exercise (7) Lumbar spine pain: Code(s): M54.5 - Low back pain Plan: Try losing the weight and keep active (8) Generalized anxiety disorder: Code(s): F41.1 - Generalized anxiety disorder Plan: Stable Orders: Orders Blood Urea Nitrogen Today N28.89 - Other specified disorders of kidney and ureter Creatinine Today N28.89 - Other specified disorders of kidney and ureter MR abdomen wo/w con Today N28.89 - Other specified disorders of kidney and ureter Medications: New hydrochlorothiazide 12.5 mg PO DAILY 30 tabs 3RF R09.89 - Other specified symptoms and signs involving the circulatory and respiratory systems Coding Level of Care Code Est Pt Level 4 (61662) Diagnoses Left kidney mass N28.89 Right inguinal hernia K40.90 Diverticulosis K57.90 Hematuria R31.9 Labile hypertension R09.89 Morbidly obese E66.01 Lumbar spine pain M54.5 Generalized anxiety disorder F41.1
[2023-11-13 16:42] VITALS: BP 140/90
== END 2023-11-13 16:58 | disposition home or self-care (01) ==
PROVIDERS: PCP Internal Medicine; Visit Provider Internal Medicine
DX: N28.89 Other specified disorders of kidney and ureter (principal); K40.90 Unilateral inguinal hernia, without obstruction or gangrene, not specified as recurrent; E66.01 Morbid (severe) obesity due to excess calories; Z68.41 Body mass index [BMI] 40.0-44.9, adult; K57.90 Diverticulosis of intestine, part unspecified, without perforation or abscess without bleeding; R31.9 Hematuria, unspecified; R09.89 Other specified symptoms and signs involving the circulatory and respiratory systems; M54.50 Low back pain, unspecified; F41.1 Generalized anxiety disorder
CPT/HCPCS: 99214

== ENCOUNTER 2023-12-19 09:11 | Outpatient (REF) | payer OTHER, SELFPAY | END 2023-12-19 09:12 | disposition home or self-care (01) | LOC: HO.SH 09:11 | PROVIDERS: Visit Provider Internal Medicine | DX: Z01.10 Encounter for examination of ears and hearing without abnormal findings (principal); H93.293 Other abnormal auditory perceptions, bilateral | CPT/HCPCS: 92557 ==

== ENCOUNTER 2023-12-26 08:01 | Outpatient (REF) | payer OTHER, SELFPAY ==
--- NOTE | ~2023-12-26 | MR_ITS ---
EXAMINATION: MR ABDOMEN WITHOUT AND WITH CONTRAST CLINICAL INFORMATION: Right upper quadrant and right lower abdominal discomfort. Follow-up observation in the left kidney on recent CT. COMPARISON: CT abdomen/pelvis 08/12/2023. TECHNIQUE: MR abdomen was performed without and with use of 10 mL intravenous Gadavist gadolinium contrast. Postcontrast images are performed in multiphase dynamic sequences. Imaging was performed in 3 planes. FINDINGS: LUNG BASES: The visualized lung bases are unremarkable. LIVER, GALLBLADDER, AND BILIARY TREE: There is signal loss in the out of phase dual echo images suggestive of hepatic steatosis. The liver is enlarged measuring 21.5 cm craniocaudally. Otherwise, liver is normal in morphology. No liver lesion. No biliary ductal dilatation. The gallbladder is unremarkable with no evidence of gallbladder wall thickening, or obvious pericholecystic inflammatory changes. PANCREAS: Unremarkable. SPLEEN: Normal. ADRENAL GLANDS: Normal. KIDNEYS AND URETERS: The lesion in question in the posterior cortex of the upper left kidney corresponds to a 1.3 cm T2 bright avascular simple Bosniak 1 cyst, for which no imaging follow-up is recommended. There is an additional 0.2 cm Bosniak 1 cyst in the posterior cortex of the lower left kidney, for which no imaging follow-up is recommended. Symmetric nephrograms. No hydronephrosis. No perinephric fat stranding. GASTROINTESTINAL TRACT: No bowel obstruction. No ascites or fluid collection. ABDOMINAL WALL: No significant hernia is appreciated. LYMPH NODES: No lymphadenopathy. VASCULAR: Unremarkable. OSSEOUS STRUCTURES: No acute or aggressive appearing osseous findings. MR/MR abdomen wo/w con IMPRESSION: 1. The lesion in question in the posterior cortex of the upper left kidney corresponds to a simple Bosniak I cyst, for which no imaging follow-up is recommended. 2. No suspicious renal lesion. 3. Hepatomegaly and hepatic steatosis.
[2023-12-26] MEDS: gadobutroL 10 ML VIAL IVPUSH (08:50)
== END 2023-12-26 08:02 | disposition home or self-care (01) ==
LOC: HO.MRI 08:01
PROVIDERS: PCP Internal Medicine; Visit Provider Internal Medicine
DX: N28.89 Other specified disorders of kidney and ureter (principal)
CPT/HCPCS: 74183; A9585

== ENCOUNTER 2023-12-31 13:48 | Outpatient (AMB) | payer OTHER, SELFPAY ==
--- NOTE | 2023-12-31 13:57 | MHC.PC.OV ---
Vital Signs 12/31/23 13:59 Height 5 ft 11 in Weight 296 lb 0.4 oz BMI 41.3 BP 160/110 H Blood Pressure Location Lt brachial Position Sitting Pulse 76 Pulse Source Pulse Oximeter Pulse Oximetry (%) 98 Oxygen Delivery Method Room Air Intake Visit Reasons: 6 month f/u Intake Note: Patient is here to follow up on 6 months Sharepoint Solutions Architect Required: No Allergies house dust Allergy (Mild, Verified 12/31/23 14:04) Sneezing, sore throat Tobacco use date assessed: 12/31/23 Dental Screening Dental Screen Date: 12/31/23 Did you have a dental visit in the last 12 months?: No Did you have a dental problem in the last 6 months where you did not have access to dental care?: No HPI 6 month f/u HPI Details 28-year-old morbidly obese male with a history of left kidney mass right inguinal hernia labile hypertension generalized anxiety disorder coming in for follow-up last seen. Review of the notes MRI done of the abdomen impression : . The lesion in question in the posterior cortex of the upper left kidney corresponds to a simple Bosniak I cyst, for which no imaging follow-up is recommended. 2. No suspicious renal lesion. 3. Hepatomegaly and hepatic steatosis. Patient also went for the hearing test which was negative [facility] Medical History (Updated 12/31/23 @ 14:42 by Jeanette Martinez MD) Left kidney mass Hearing difficulty Tinea cruris Laceration of left knee with foreign body Seizures Inverse psoriasis Insomnia Obesity (BMI 30-39.9) Erectile dysfunction No known health problems Surgical History No pertinent past surgical history Family History Maternal Grandmother Heart attack Paternal Grandmother Breast cancer Other Diabetes Hypertension Social History Housing: Apartment Alcohol intake: current Alcohol intake frequency: does not drink Patient Tobacco Use Status: Former Tobacco user Years Smoked: quit 6 week week and cigarettes 20 years old stopped e-Cigarette/Vaping Use: Never Used Second Hand Smoke Exposure: Yes Substance Use Type: Marijuana service: No Current occupational status: employed Cognitive needs: No Hearing needs: No Vision needs: Yes Questionnaire PHQ-9 Over the last 2 weeks, how often have you been bothered by any of the following problems? 1. Little interest or pleasure in doing things: several days 2. Feeling down, depressed, or hopeless: several days 3. Trouble falling or staying asleep, or sleeping too much: several days 4. Feeling tired or having little energy: several days 5. Poor appetite or overeating: not at all 6. Feeling bad about yourself - or that you are a failure or have let yourself or your family down: not at all 7. Trouble concentrating on things, such as reading the newspaper or watching television: not at all 8. Moving or speaking so slowly that other people could have noticed. Or the opposite - being so fidgety or restless that you have been moving around a lot more than usual: not at all 9. Thoughts that you would be better off or of hurting yourself in some way: not at all Total score: 4 Depression Screening Interpretation: Negative Depression Screening Done: Yes Source: Developed by Drs. Brady Garibay, Jodi Gill, Abdi Hardy and colleagues, with an educational trinity from [email or web address]. Thrive Questionnaire Date Thrive assessed: 12/31/23 I am a: Patient What is your living situation today?: I have a steady place to live Within the past 12 months, did the food you bought not last and you didn't have the money to get more?: Never true Within the past 12 months, did you worry whether your food would run out before you got money to buy more?: Never true Do you have trouble paying for medicines?: No Do you have trouble getting transportation to medical appointments?: No Do you have trouble paying your heating and electricity bill?: No Do you have trouble taking care of your child, family member or friend?: No Do you have trouble with day-to-day activities such as bathing, preparing meals, shopping, managing finances, etc.?: No Are you currently unemployed and looking for a job?: No Are you interested in more education?: No Please select the resources that you would like help with: None THRIVE Score: 0 AUDIT C Alcohol Use Questionnaire (AUDIT-C) 1. How often do you have a drink containing alcohol?: Monthly or less 2. How many drinks containing alcohol do you have on a typical day when you are drinking?: 1 or 2 3. How often do you have six or more drinks on one occasion?: Never Total Score: 1 LYRIC-7 AMB Questionnaire LYRIC-7 Date LYRIC - 7 assessed: 12/31/23 Feeling nervous, anxious, or on edge: 0 = Not at all Not being able to stop or control worryin = Not at all Worrying too much about different things: 0 = Not at all Trouble relaxin = Not at all Being so restless that it is hard to sit still: 0 = Not at all Becoming easily annoyed or irritable: 0 = Not at all Feeling afraid as if something awful might happen: 0 = Not at all Total LYRIC-7 score (0-4 normal; 5-9 mild; 10-14 moderate; 15-21 severe): 0 Source: Developed by Drs. Brady Garibay, Jodi Gill, Abdi Hardy and colleagues, with an educational trinity from [email or web address]. Physical exam (Primary Care) Vital Signs: Last Vital Signs Pulse 76 12/31/23 13:59 BP 160/110 H 12/31/23 13:59 Pulse Ox 98 12/31/23 13:59 Oxygen Delivery Method Room Air 12/31/23 13:59 BMI result Body Mass Index 41.3 Tobacco/Smoking Status: Tobacco use Status Tobacco use date assessed 12/31/23 12/31/23 13:59 Patient Tobacco Use Status Former Tobacco user 12/31/23 13:59 e-Cigarette/Vaping Use Never Used 12/31/23 13:59 PHQ-9: PHQ-9 Score PHQ-9: Total score 4 12/31/23 14:07 Depression Screening Interpretation: Negative Thrive Assessment: Date of Thrive Assessment Date Thrive assessed 12/31/23 12/31/23 13:59 Const General: alert; No acute distress Eyes Conjunctivae: conjunctivae normal Resp Auscultation: clear to auscultation bilaterally Cardio Rate: regular rate Rhythm: regular rhythm GI Inspection: Yes normal to inspection Extrem General: Yes normal to inspection and No edema Assessment and Plan Assessment & Plan (1) Impaired fasting blood sugar: Code(s): R73.01 - Impaired fasting glucose Plan: Decrease the amount of carbohydrate intake, pasta, bread, rice and potatoes are all sugar and that is aside from all the sweet stuff, remember that fruits are good but they are Sweet also. (2) Labile hypertension: Code(s): R09.89 - Other specified symptoms and signs involving the circulatory and respiratory systems Plan: Presently on hydrochlorothiazide (3) Morbidly obese: Code(s): E66.01 - Morbid (severe) obesity due to excess calories Plan: Diet and exercise (4) Hepatic steatosis: Code(s): K76.0 - Fatty (change of) liver, not elsewhere classified Plan: low fat diet and exercise Medications: New lisinopril-hydrochlorothiazide 10-12.5 mg 1 tab PO DAILY 90 tabs 1RF R09.89 - Other specified symptoms and signs involving the circulatory and respiratory systems Discontinued dexamethasone Discontinued Reason: Patient Completed Course 4 mg PO BID 6 tabs 0RF hydrochlorothiazide Discontinued Reason: Doctor's Order 12.5 mg PO DAILY 30 tabs 3RF R09.89 - Other specified symptoms and signs involving the circulatory and respiratory systems Coding Level of Care Code Est Pt Level 4 (69440) Diagnoses Impaired fasting blood sugar R73.01 Labile hypertension R09.89 Morbidly obese E66.01 Hepatic steatosis K76.0
[2023-12-31 13:59] VITALS: BP 160/110; PULSE 76; O2SAT 98; BMI 41.3
== END 2023-12-31 14:48 | disposition home or self-care (01) ==
PROVIDERS: PCP Internal Medicine; Visit Provider Internal Medicine
DX: R73.01 Impaired fasting glucose (principal); E66.01 Morbid (severe) obesity due to excess calories; Z68.41 Body mass index [BMI] 40.0-44.9, adult; R09.89 Other specified symptoms and signs involving the circulatory and respiratory systems; K76.0 Fatty (change of) liver, not elsewhere classified
CPT/HCPCS: 99214

== ENCOUNTER 2024-04-02 11:41 | Outpatient (AMB) | payer OTHER, SELFPAY ==
[2024-04-02 11:53] VITALS: BP 132/92; PULSE 89; O2SAT 99; BMI 40.3
--- NOTE | 2024-04-02 11:53 | MHC.PC.OV ---
Vital Signs 04/02/24 11:53 Height 5 ft 11 in Weight 289 lb BMI 40.3 BP 132/92 H Blood Pressure Location Lt brachial Position Sitting Pulse 89 Pulse Source Pulse Oximeter Pulse Oximetry (%) 99 Oxygen Delivery Method Room Air Intake Visit Reasons: HTN ,fatty liver Allergies house dust Allergy (Mild, Verified 04/02/24 11:53) Sneezing, sore throat Medication List - Last Reconciled 04/02/24 by Jeanette Martinez MD blood pressure monitor (Blood Pressure Kit) As directed clotrimazole 1% 1 appl topical BID 4 weeks lisinopril 5 mg PO DAILY tramadol 50 mg PO Q6H PRN triamcinolone acetonide 0.5% 1 appl topical BID Tobacco use date assessed: 12/31/23 Dental Screening Dental Screen Date: 04/02/24 Did you have a dental visit in the last 12 months?: No Did you have a dental problem in the last 6 months where you did not have access to dental care?: No Was dental information given to patient?: No HPI HTN ,fatty liver HPI Details 28-year-old morbidly obese male BMI of 40(noted weight loss of 7 lb) with impaired glucose tolerance hypertension and hepatic steatosis coming in for follow-up. Last seen in December 2023. Has been doing therapy in the gym and noted weight loss. Patient admits to not taking the blood pressure medication as he feels dizzy when he changes in movement. Discussed our concerns about blood pressure and that it is basic to get this down. Blood pressure checked noted to be 140/90. Patient also has a rash on the right antecubital area and was diagnosed to have eczema before and would like something for this. [facility] Medical History (Updated 04/02/24 @ 12:21 by Jeanette Martinez MD) Left kidney mass Hearing difficulty Tinea cruris Laceration of left knee with foreign body Seizures Inverse psoriasis Insomnia Obesity (BMI 30-39.9) Erectile dysfunction No known health problems Surgical History No pertinent past surgical history Family History Maternal Grandmother Heart attack Paternal Grandmother Breast cancer Other Diabetes Hypertension Social History Housing: Apartment Alcohol intake: current Alcohol intake frequency: does not drink Patient Tobacco Use Status: Former Tobacco user Tobacco use type: Cigarette Years Smoked: quit 6 week week and cigarettes 20 years old stopped e-Cigarette/Vaping Use: Never Used Second Hand Smoke Exposure: Yes Substance Use Type: Marijuana service: No Current occupational status: employed Cognitive needs: No Hearing needs: No Vision needs: Yes Questionnaire PHQ-9 Over the last 2 weeks, how often have you been bothered by any of the following problems? 1. Little interest or pleasure in doing things: several days 2. Feeling down, depressed, or hopeless: several days 3. Trouble falling or staying asleep, or sleeping too much: several days 4. Feeling tired or having little energy: several days 5. Poor appetite or overeating: not at all 6. Feeling bad about yourself - or that you are a failure or have let yourself or your family down: not at all 7. Trouble concentrating on things, such as reading the newspaper or watching television: not at all 8. Moving or speaking so slowly that other people could have noticed. Or the opposite - being so fidgety or restless that you have been moving around a lot more than usual: not at all 9. Thoughts that you would be better off or of hurting yourself in some way: not at all Total score: 4 Depression Screening Interpretation: Negative Depression Screening Done: Yes Source: Developed by Drs. Brady Garibay, Jodi Gill, Abdi Hardy and colleagues, with an educational trinity from [employer]. Thrive Questionnaire Date Thrive assessed: 04/02/24 I am a: Patient What is your living situation today?: I have a steady place to live Within the past 12 months, did the food you bought not last and you didn't have the money to get more?: Never true Within the past 12 months, did you worry whether your food would run out before you got money to buy more?: Never true Do you have trouble paying for medicines?: No Do you have trouble getting transportation to medical appointments?: No Do you have trouble paying your heating and electricity bill?: No Do you have trouble taking care of your child, family member or friend?: No Do you have trouble with day-to-day activities such as bathing, preparing meals, shopping, managing finances, etc.?: No Are you currently unemployed and looking for a job?: No Are you interested in more education?: No Please select the resources that you would like help with: None Currently or been in a relationship where the following occur: no concerns reported THRIVE Score: 0 AUDIT C Alcohol Use Questionnaire (AUDIT-C) 1. How often do you have a drink containing alcohol?: Monthly or less 2. How many drinks containing alcohol do you have on a typical day when you are drinking?: 1 or 2 3. How often do you have six or more drinks on one occasion?: Never Total Score: 1 LYRIC-7 AMB Questionnaire LYRIC-7 Date LYRIC - 7 assessed: 04/02/24 Feeling nervous, anxious, or on edge: 0 = Not at all Not being able to stop or control worryin = Not at all Worrying too much about different things: 0 = Not at all Trouble relaxin = Not at all Being so restless that it is hard to sit still: 0 = Not at all Becoming easily annoyed or irritable: 0 = Not at all Feeling afraid as if something awful might happen: 0 = Not at all Total LYRIC-7 score (0-4 normal; 5-9 mild; 10-14 moderate; 15-21 severe): 0 Source: Developed by Drs. Brady Garibay, Jodi Gill, Abdi Hardy and colleagues, with an educational trinity from [employer]. Physical exam (Primary Care) Vital Signs: Last Vital Signs Pulse 89 04/02/24 11:53 BP 132/92 H 04/02/24 11:53 Pulse Ox 99 04/02/24 11:53 Oxygen Delivery Method Room Air 04/02/24 11:53 BMI result Body Mass Index 40.3 Tobacco/Smoking Status: Tobacco use Status Tobacco use date assessed 12/31/23 04/02/24 11:57 Patient Tobacco Use Status Former Tobacco user 04/02/24 11:57 Tobacco use type Cigarette 04/02/24 11:57 e-Cigarette/Vaping Use Never Used 04/02/24 11:57 PHQ-9: PHQ-9 Score PHQ-9: Total score 4 04/02/24 11:57 Depression Screening Interpretation: Negative Thrive Assessment: Date of Thrive Assessment Date Thrive assessed 04/02/24 04/02/24 11:57 Currently or been in a relationship where the following occur: no concerns reported Const General: alert; No acute distress Eyes Conjunctivae: conjunctivae normal Resp Auscultation: clear to auscultation bilaterally Cardio Rate: regular rate Rhythm: regular rhythm GI Inspection: Yes normal to inspection Extrem General: Yes normal to inspection and No edema Shoulder/upper arm images: 1. 4 x 3 cm maculopapular rash on the right antecubital area and the mild 1 on the left antecubital area. Assessment and Plan Assessment & Plan (1) Hepatic steatosis: Code(s): K76.0 - Fatty (change of) liver, not elsewhere classified Plan: Low-fat diet and exercise (2) Morbidly obese: Code(s): E66.01 - Morbid (severe) obesity due to excess calories Plan: Diet and exercise (3) Impaired fasting blood sugar: Code(s): R73.01 - Impaired fasting glucose Plan: Decrease the amount of carbohydrate intake, pasta, bread, rice and potatoes are all sugar and that is aside from all the sweet stuff, remember that fruits are good but they are Sweet also. (4) Labile hypertension: Code(s): R09.89 - Other specified symptoms and signs involving the circulatory and respiratory systems Plan: Patient has not taking the medication because of positional vertigo.. Patient is prescribed only lisinopril. Decrease salt intake and exercise discussion on the importance of getting blood pressure under control (5) Eczema: Comment: antecubital Code(s): L30.9 - Dermatitis, unspecified Plan: Steroid cream prescription sent in advised to use it no more than 2 weeks. Orders: Orders Hemoglobin A1c Today R73.01 - Impaired fasting glucose Comprehensive Met. Panel Today R73.01 - Impaired fasting glucose Complete Blood Count Auto Diff Today R73.01 - Impaired fasting glucose Thyroid Stimulating Hormone Today R73.01 - Impaired fasting glucose Free T4 (Free Thyroxine) Today R73.01 - Impaired fasting glucose Lipid Panel Today E78.00 - Pure hypercholesterolemia, unspecified, R73.01 - Impaired fasting glucose Medications: New lisinopril 5 mg PO DAILY 30 tabs 4RF R09.89 - Other specified symptoms and signs involving the circulatory and respiratory systems triamcinolone acetonide 0.5% 1 appl topical BID 30 grams 0RF L30.9 - Dermatitis, unspecified Discontinued lisinopril-hydrochlorothiazide 10-12.5 mg Discontinued Reason: Patient Refused 1 tab PO DAILY 90 tabs 1RF R09.89 - Other specified symptoms and signs involving the circulatory and respiratory systems Coding Level of Care Code Est Pt Level 4 (91835) Diagnoses Hepatic steatosis K76.0 Morbidly obese E66.01 Impaired fasting blood sugar R73.01 Labile hypertension R09.89 Eczema L30.9
== END 2024-04-02 12:28 | disposition home or self-care (01) ==
PROVIDERS: PCP Internal Medicine; Visit Provider Internal Medicine
DX: K76.0 Fatty (change of) liver, not elsewhere classified (principal); E66.01 Morbid (severe) obesity due to excess calories; Z68.41 Body mass index [BMI] 40.0-44.9, adult; R73.01 Impaired fasting glucose; R09.89 Other specified symptoms and signs involving the circulatory and respiratory systems; L30.9 Dermatitis, unspecified
CPT/HCPCS: 99214

== ENCOUNTER 2024-06-30 13:42 | Outpatient (AMB) | payer OTHER, SELFPAY ==
[2024-06-30 13:52] VITALS: BP 150/96; PULSE 80; O2SAT 100; BMI 40.9
--- NOTE | 2024-06-30 13:52 | A.OFFPC_ITS ---
Vital Signs 06/30/24 13:52 Height 5 ft 11 in Weight 293 lb 0.4 oz BMI 40.9 BP 150/96 H Blood Pressure Location Lt brachial Position Sitting Pulse 80 Pulse Source Pulse Oximeter Pulse Oximetry (%) 100 Oxygen Delivery Method Room Air Intake Visit Reasons: pe Intake Note: Patient is here today for a physical. 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 Allergies house dust Allergy (Mild, Verified 06/30/24 13:53) Sneezing, sore throat Medication List - Last Reconciled 06/30/24 by Jeanette Martinez MD blood pressure monitor (Blood Pressure Kit) As directed clotrimazole 1% 1 appl topical BID 4 weeks lisinopril 5 mg PO DAILY triamcinolone acetonide 0.5% 1 appl topical BID Tobacco use date assessed: 12/31/23 Dental Screening Dental Screen Date: 04/02/24 Did you have a dental visit in the last 12 months?: No Did you have a dental problem in the last 6 months where you did not have access to dental care?: No HPI pe HPI Details 29-year-old morbidly obese male with imp aired glucose tolerance hepatic steatosis and labile hypertension coming in for physical exam. Last seen in March 2024. Patient is here for physical exam [facility] Medical History (Updated 06/30/24 @ 14:14 by Jeanette Martinez MD) Left kidney mass Hearing difficulty Tinea cruris Laceration of left knee with foreign body Seizures Inverse psoriasis Insomnia Obesity (BMI 30-39.9) Erectile dysfunction No known health problems Surgical History No pertinent past surgical history Family History Maternal Grandmother Heart attack Paternal Grandmother Breast cancer Other Diabetes Hypertension Social History (Updated 06/30/24 @ 14:15 by Jeanette Martinez MD) Housing: Apartment Alcohol intake: current Alcohol intake frequency: does not drink Comment: 1-2 a month 4-8 drinks Patient Tobacco Use Status: Former Tobacco user Tobacco use type: Cigarette Years Smoked: quit 6 week week and cigarettes 20 years old stopped e-Cigarette/Vaping Use: Never Used Second Hand Smoke Exposure: Yes Substance Use Type: Marijuana service: No Current occupational status: employed Cognitive needs: No Hearing needs: No Vision needs: Yes Questionnaire PHQ-9 Over the last 2 weeks, how often have you been bothered by any of the following problems? 1. Little interest or pleasure in doing things: not at all 2. Feeling down, depressed, or hopeless: several days 3. Trouble falling or staying asleep, or sleeping too much: nearly every day 4. Feeling tired or having little energy: more than half the days 5. Poor appetite or overeating: nearly every day 6. Feeling bad about yourself - or that you are a failure or have let yourself or your family down: not at all 7. Trouble concentrating on things, such as reading the newspaper or watching television: several days 8. Moving or speaking so slowly that other people could have noticed. Or the opposite - being so fidgety or restless that you have been moving around a lot more than usual: not at all 9. Thoughts that you would be better off or of hurting yourself in some way: not at all Total score: 10 Depression Screening Interpretation: Negative Depression Screening Done: Yes Source: Developed by Drs. Brady Garibay, Jodi Gill, Abdi Hardy and colleagues, with an educational trinity from [employer]. Thrive Questionnaire Date Thrive assessed: 04/02/24 AUDIT C Alcohol Use Questionnaire (AUDIT-C) 1. How often do you have a drink containing alcohol?: Monthly or less 2. How many drinks containing alcohol do you have on a typical day when you are drinking?: 1 or 2 3. How often do you have six or more drinks on one occasion?: Never Total Score: 1 LYRIC-7 AMB Questionnaire LYRIC-7 Date LYRIC - 7 assessed: 04/02/24 Feeling nervous, anxious, or on edge: 1 = Several days Not being able to stop or control worryin = Not at all Worrying too much about different things: 0 = Not at all Trouble relaxin = Several days Being so restless that it is hard to sit still: 0 = Not at all Becoming easily annoyed or irritable: 0 = Not at all Feeling afraid as if something awful might happen: 0 = Not at all Total LYRIC-7 score (0-4 normal; 5-9 mild; 10-14 moderate; 15-21 severe): 2 Source: Developed by Drs. Brady Garibay, Jodi Gill, Abdi Hardy and colleagues, with an educational trinity from [employer]. LYRIC-7 Assessment Billing LYRIC-7 Assessment Tool: LYRIC-7 Assessment 77523 Review of Systems Const Denies poor appetite and Denies weakness Eyes Denies no additional complaints ENT Reports Normal hearing present, Denies dizziness, Denies nasal congestion, Denies tinnitus and Denies sore throat Card Denies chest pain, Denies syncope, Denies rapid heart rate and Denies dyspnea Resp Denies cough and Denies dyspnea GI Denies change in stool character, Reports constipation, Denies diarrhea, Denies nausea and Denies vomiting Denies dysuria and Denies urinary frequency Neuro Reports Normal hearing present, Denies confusion, Denies dizziness, Denies syncope and Denies weakness Psych Denies confusion Physical exam (Primary Care) Vital Signs: Last Vital Signs Pulse 80 06/30/24 13:52 BP 150/96 H 06/30/24 13:52 Pulse Ox 100 06/30/24 13:52 Oxygen Delivery Method Room Air 06/30/24 13:52 BMI result Body Mass Index 40.9 Tobacco/Smoking Status: Tobacco use Status Tobacco use date assessed 12/31/23 06/30/24 13:53 Patient Tobacco Use Status Former Tobacco user 06/30/24 13:53 Tobacco use type Cigarette 06/30/24 13:53 e-Cigarette/Vaping Use Never Used 06/30/24 13:53 PHQ-9: PHQ-9 Score PHQ-9: Total score 10 06/30/24 14:00 Depression Screening Interpretation: Negative Thrive Assessment: Date of Thrive Assessment Date Thrive assessed 04/02/24 06/30/24 13:53 Const General: No confusion Orientation/consciousness: No confusion HENMT Head: Yes normocephalic Ears: external ears normal and TM's normal bilaterally Face and sinus: Yes normal facial exam Mouth: moist mucous membranes Throat: Yes tonsils normal Eyes Conjunctivae: conjunctivae normal Pupils: Equal, round and reactive pupils present and Pupil accommodation reflex normal Direct Ophthalmoscopy: normal light reflex Neck Neck: No lymphadenopathy Thyroid: Thyroid normal Chest Chest palpation & inspection: normal inspection of the chest Resp Effort & Inspection: normal respiratory effort and no audible wheezes Auscultation: clear to auscultation bilaterally, no crackles, no wheezes and lung sounds not diminished Cardio Rate: regular rate Rhythm: regular rhythm Peripheral pulses: radial pulses present and dorsalis pedis present GI Other: visual rectal N Palpation (GI): no masses Auscultation: normal bowel sounds and normoactive bowel sounds Rectal Exam - Male: Yes deferred Male General Exam: Yes normal external exam Skin General skin exam: no rashes or lesions noted Rashes: no rashes Neuro General: No confusion Cranial nerves: Yes Equal, round and reactive pupils present and Yes Normal hearing present Cognition (Neuro): normal cognition Gait exam (Neuro): Normal gait present Motor exam (neuro): 5/5 motor strength present throughout Deep tendon reflexes (DTR's): Right brachioradialis reflex intensity grade: 2+, Left brachioradialis reflex intensity grade: 2+, Right patellar reflex intensity grade: 2+ and Left patellar reflex intensity grade: 2+ Extrem General: No edema Assessment and Plan Assessment & Plan (1) Annual physical exam: Code(s): Z00.00 - Encounter for general adult medical examination without abnormal findings Plan: Patient is advised to eat healthy, keep well hydrated, keep active and have adequate sleep. (2) Morbidly obese: Code(s): E66.01 - Morbid (severe) obesity due to excess calories Plan: Diet and exercise (3) Labile hypertension: Code(s): R09.89 - Other specified symptoms and signs involving the circulatory and respiratory systems Plan: Patient was advised to monitor blood pressure on lisinopril 5 mg once a day (4) Impaired fasting blood sugar: Code(s): R73.01 - Impaired fasting glucose Plan: Decrease the amount of carbohydrate intake, pasta, bread, rice and potatoes are all sugar and that is aside from all the sweet stuff, remember that fruits are good but they are Sweet also. (5) Generalized anxiety disorder: Code(s): F41.1 - Generalized anxiety disorder (6) Hematuria: Code(s): R31.9 - Hematuria, unspecified Orders: Orders UA w Microscopic Today R31.9 - Hematuria, unspecified Referrals Nephrology Referral R09.89 - Other specified symptoms and signs involving the circulatory and respiratory systems Medications: Refilled clotrimazole 1% 1 appl topical BID 4 weeks 45 grams 0RF B35.6 - Tinea cruris Discontinued lisinopril Discontinued Reason: Change Referral Type 5 mg PO DAILY 30 tabs 4RF R09.89 - Other specified symptoms and signs involving the circulatory and respiratory systems Coding Level of Care Code Est Pt Prev Care 18-39y([id number]) Diagnoses Annual physical exam Z00.00 Morbidly obese E66.01 Labile hypertension R09.89 Impaired fasting blood sugar R73.01 Generalized anxiety disorder F41.1 Hematuria R31.9 Additional Codes LYRIC-7 Assessment Billing - LYRIC-7 Assessment Tool: LYRIC-7 Assessment [id number] ([id number])
== END 2024-06-30 15:27 | disposition home or self-care (01) ==
PROVIDERS: PCP Internal Medicine; Visit Provider Internal Medicine
DX: Z00.00 Encounter for general adult medical examination without abnormal findings (principal); E66.01 Morbid (severe) obesity due to excess calories; Z68.41 Body mass index [BMI] 40.0-44.9, adult; R09.89 Other specified symptoms and signs involving the circulatory and respiratory systems; R73.01 Impaired fasting glucose; F41.1 Generalized anxiety disorder; R31.9 Hematuria, unspecified
CPT/HCPCS: 99395

== ENCOUNTER 2024-10-08 14:32 | Outpatient (AMB) | payer OTHER, SELFPAY ==
[2024-10-08 14:33] VITALS: BP 132/90; PULSE 100; O2SAT 97; BMI 42.0
--- NOTE | 2024-10-08 14:33 | MHC.PC.OV ---
Vital Signs 10/08/24 14:33 10/08/24 14:47 Height 5 ft 11 in Weight 301 lb BMI 42.0 BP 132/90 H 136/80 Blood Pressure Location Lt brachial Lt brachial Position Sitting Sitting Pulse 100 Pulse Source Pulse Oximeter Pulse Oximetry (%) 97 Oxygen Delivery Method Room Air Intake Visit Reasons: labile HTN Alliances Consultant Required: No Accompanied by: Self / Same As Patient Allergies house dust Allergy (Mild, Verified 10/08/24 14:33) Sneezing, sore throat Tobacco use date assessed: 10/08/24 Dental Screening Dental Screen Date: 10/08/24 Did you have a dental visit in the last 12 months?: No Did you have a dental problem in the last 6 months where you did not have access to dental care?: No Was dental information given to patient?: Patient has dentist HPI labile HTN HPI Details 29-year-old morbidly obese male with labile hypertension, impaired glucose tolerance generalized anxiety disorder last seen in June 2024. patient is on no medicat [facility] Medical History (Updated 10/08/24 @ 14:50 by Jeanette Martinez MD) Left kidney mass Hearing difficulty Tinea cruris Laceration of left knee with foreign body Seizures Inverse psoriasis Insomnia Obesity (BMI 30-39.9) Erectile dysfunction No known health problems Surgical History No pertinent past surgical history Family History Maternal Grandmother Heart attack Paternal Grandmother Breast cancer Other Diabetes Hypertension Social History (Updated 06/30/24 @ 14:15 by Jeanette Martinez MD) Housing: Apartment Alcohol intake: current Alcohol intake frequency: does not drink Comment: 1-2 a month 4-8 drinks Patient Tobacco Use Status: Former Tobacco user Tobacco use type: Cigarette Years Smoked: quit 6 week week and cigarettes 20 years old stopped e-Cigarette/Vaping Use: Never Used Second Hand Smoke Exposure: Yes Substance Use Type: Marijuana service: No Current occupational status: employed Cognitive needs: No Hearing needs: No Vision needs: Yes Questionnaire PHQ-9 Over the last 2 weeks, how often have you been bothered by any of the following problems? 1. Little interest or pleasure in doing things: not at all 2. Feeling down, depressed, or hopeless: several days 3. Trouble falling or staying asleep, or sleeping too much: nearly every day 4. Feeling tired or having little energy: more than half the days 5. Poor appetite or overeating: nearly every day 6. Feeling bad about yourself - or that you are a failure or have let yourself or your family down: not at all 7. Trouble concentrating on things, such as reading the newspaper or watching television: several days 8. Moving or speaking so slowly that other people could have noticed. Or the opposite - being so fidgety or restless that you have been moving around a lot more than usual: not at all 9. Thoughts that you would be better off or of hurting yourself in some way: not at all Total score: 10 Depression Screening Interpretation: Negative Depression Screening Done: Yes Source: Developed by Drs. Brady Garibay, Jodi Gill, Abdi Hardy and colleagues, with an educational trinity from [employer]. Thrive Questionnaire Date Thrive assessed: 10/08/24 I am a: Patient What is your living situation today?: I have a steady place to live Within the past 12 months, did the food you bought not last and you didn't have the money to get more?: Never true Within the past 12 months, did you worry whether your food would run out before you got money to buy more?: Never true Do you have trouble paying for medicines?: No Do you have trouble getting transportation to medical appointments?: No Do you have trouble paying your heating and electricity bill?: No Do you have trouble taking care of your child, family member or friend?: No Do you have trouble with day-to-day activities such as bathing, preparing meals, shopping, managing finances, etc.?: No Are you currently unemployed and looking for a job?: No Are you interested in more education?: No Please select the resources that you would like help with: None Currently or been in a relationship where the following occur: No concerns reported THRIVE Score: 0 AUDIT C Alcohol Use Questionnaire (AUDIT-C) 1. How often do you have a drink containing alcohol?: Monthly or less 2. How many drinks containing alcohol do you have on a typical day when you are drinking?: 1 or 2 3. How often do you have six or more drinks on one occasion?: Never Total Score: 1 LYRIC-7 AMB Questionnaire LYRIC-7 Date LYRIC - 7 assessed: 10/08/24 Feeling nervous, anxious, or on edge: 1 = Several days Not being able to stop or control worryin = Not at all Worrying too much about different things: 0 = Not at all Trouble relaxin = Several days Being so restless that it is hard to sit still: 0 = Not at all Becoming easily annoyed or irritable: 0 = Not at all Feeling afraid as if something awful might happen: 0 = Not at all Total LYRIC-7 score (0-4 normal; 5-9 mild; 10-14 moderate; 15-21 severe): 2 Source: Developed by Drs. Brady Garibay, Jodi Gill, Abdi Hardy and colleagues, with an educational trinity from [employer]. LYRIC-7 Assessment Billing LYRIC-7 Assessment Tool: LYRIC-7 Assessment 93059 Physical exam (Primary Care) Vital Signs: Last Vital Signs Pulse 100 10/08/24 14:33 BP 132/90 H 10/08/24 14:33 Pulse Ox 97 10/08/24 14:33 Oxygen Delivery Method Room Air 10/08/24 14:33 BMI result Body Mass Index 42.0 Tobacco/Smoking Status: Tobacco use Status Tobacco use date assessed 10/08/24 10/08/24 14:39 Patient Tobacco Use Status Former Tobacco user 10/08/24 14:39 Tobacco use type Cigarette 10/08/24 14:39 e-Cigarette/Vaping Use Never Used 10/08/24 14:39 PHQ-9: PHQ-9 Score PHQ-9: Total score 10 10/08/24 14:39 Depression Screening Interpretation: Negative Thrive Assessment: Date of Thrive Assessment Date Thrive assessed 10/08/24 10/08/24 14:39 Currently or been in a relationship where the following occur: No concerns reported Const General: alert; No acute distress Eyes Conjunctivae: conjunctivae normal Resp Auscultation: clear to auscultation bilaterally Cardio Rate: regular rate Rhythm: regular rhythm GI Inspection: Yes normal to inspection Extrem General: Yes normal to inspection and No edema Coding Level of Care Code Est Pt Level 4 (19527) Diagnoses Morbidly obese E66.01 Hepatic steatosis K76.0 Impaired fasting blood sugar R73.01 Labile hypertension R09.89 Intertriginous candidiasis B37.2 Additional Codes LYRIC-7 Assessment Billing - LYRIC-7 Assessment Tool: LYRIC-7 Assessment 64199 ([id number]) Assessment & Plan Assessment & Plan (1) Morbidly obese: Code(s): E66.01 - Morbid (severe) obesity due to excess calories Category: Medical Plan: patient needs to diet and exercise (2) Hepatic steatosis: Code(s): K76.0 - Fatty (change of) liver, not elsewhere classified Category: Medical Plan: low-fat diet and exercise (3) Impaired fasting blood sugar: Code(s): R73.01 - Impaired fasting glucose Category: Medical Plan: Decrease the amount of carbohydrate intake, pasta, bread, rice and potatoes are all sugar and that is aside from all the sweet stuff, remember that fruits are good but they are Sweet also. (4) Labile hypertension: Code(s): R09.89 - Other specified symptoms and signs involving the circulatory and respiratory systems Category: Medical Plan: Low-salt diet, lose the weight. BP. good here and will continue to monitor (5) Intertriginous candidiasis: Code(s): B37.2 - Candidiasis of skin and nail Category: Medical Plan: antifungal cream sent Medications: Refilled triamcinolone acetonide 0.5% 1 appl topical BID 30 grams 0RF L30.9 - Dermatitis, unspecified clotrimazole 1% 1 appl topical BID 4 weeks 45 grams 0RF B35.6 - Tinea cruris
[2024-10-08 14:47] VITALS: BP 136/80
== END 2024-10-08 14:56 | disposition home or self-care (01) ==
PROVIDERS: PCP Internal Medicine; Visit Provider Internal Medicine
DX: R73.01 Impaired fasting glucose (principal); E66.01 Morbid (severe) obesity due to excess calories; Z68.41 Body mass index [BMI] 40.0-44.9, adult; K76.0 Fatty (change of) liver, not elsewhere classified; B37.2 Candidiasis of skin and nail

== ENCOUNTER → 2024-10-08 14:32 | Outpatient (BNVA) | payer OTHER, SELFPAY | PROVIDERS: PCP Internal Medicine; Visit Provider Internal Medicine | DX: E66.01 Morbid (severe) obesity due to excess calories (principal); K76.0 Fatty (change of) liver, not elsewhere classified; R73.01 Impaired fasting glucose; R09.89 Other specified symptoms and signs involving the circulatory and respiratory systems; B37.2 Candidiasis of skin and nail | CPT/HCPCS: 96127; 99212 ==

== ENCOUNTER 2025-07-02 12:45 | Outpatient (AMB) | payer OTHER, SELFPAY ==
--- OUTSIDE RECORDS SUMMARY | 2025-07-02 12:48 | XMS_ITS | Clinical Summary ---
Author Organization [employer] Address [address] [place] [address] Care Team Providers Care Consumer Relations Complaint Clerk Name Role Phone Unavailable Primary Care Provider Unavailabl e Social History Tobacco Use Types Packs/Day Years Used Date Smoking Tobacco: Never Assessed Sex and Gender Information Value Date Recorded Sex Assigned at Male 09/17/2022 10:24 AM EDT Legal Sex Male 10:24 AM EDT Gender Identity Male 09/17/2022 10:24 AM EDT Sexual Orientation Straight 09/17/2022 10 :24 AM EDT Plan of Treatment Health Maintenance Due Date Last Done Comments Depression Screening 1996 Disability Screening 1996 Alcohol/Substance Use Screening 2008 Tobacco Screening 2008 Family Planning (PISQ) 2011 HPV Vaccines (1 - Male 3-dos e series) 2011 DTaP/Tdap/Td Vaccines (1 - Tdap) 2015 Hepatitis B Vaccines (1 of 3 - 19+ 3-dose series) 2015 COVID-19 Vaccine (1 - 2023-2 5 season) 2024 Influenza Vaccine (#1) 2025 Zoster Vaccines (1 of 2) 2046 RSV Patients and Pa tients Aged 60 years or older (1 - 1-dose 75+ series) 2071 HIB Vaccines Aged Out No longer eligi ble based on patient's age to complete this topic Hepatitis A Vaccines Aged Out No long er eligible based on patient's age to complete this topic IPV Vaccines Aged Out No longer eligi ble based on patient's age to complete this topic Meningococcal B Vaccine Aged Out No l onger eligible based on patient's age to complete this topic Meningococcal Vaccine Aged Out No harleen sofia eligible based on patient's age to complete this topic Pneumococcal Vaccine: Pediat rics (0 to 5 Years) and At-Risk Patients (6 to 49) Years Aged Out No longer eligible b ased on patient's age to complete this topic RSV under 20 months Aged Out No longe r eligible based on patient's age to complete this topic Rotavirus Vaccines Aged Out No longer eligible based on patient's age to complete this topic
--- OUTSIDE RECORDS SUMMARY | 2025-07-02 12:48 | XMS_ITS | Clinical Summary ---
Author Organization [facility] Facility Address [address] [place] [id number] Care Team Providers Care Recreation Clerk Name Role Phone Jeanette Martinez MD Primary Care Provider [phone] Allergies Active Allergy Reactions Criticality Noted Date Comments Dust Mite Extract 09/13/2022 Medications lisinopril 5 MG tablet Take 1 tablet (5 mg total) by mouth 1 (one) time each day 90 tablet 3 12/18/2022 Active Active Problems Problem Noted Date Diagnosed Date Labile hypertension due to being in a clinical e nvironment 09/12/2022 Hypertension 09/12/2022 Family History Medical History Relation Comments Heart attack Maternal Grandmother Cancer Paternal Grandmother breast canc er Relation Status Comments Maternal Grandmother Paternal Grandmother Social History Tobacco Use Types Packs/Day Years Used Date Smoking Tobacco: Former Cigarettes Smokeless Tobacco: Never Tobacco Cessation:Counseling Given: Not Answered Sex and Gender Information Value Date Recorded Sex Assigned at Not on file Legal Sex Male 9:33 AM EDT Gender Identity Not on file Sexual Orientation Not on file Last Filed Vital Signs Vital Sign Reading Time Taken Comments Blood Pressure 146/100 12/18/2022 10:05 AM EST Pulse 74 12/18/2022 10:05 AM EST Temperature - - Respiratory Rate - - Oxygen Saturation 96% 12/18/2022 10:05 AM EST Inhaled Oxygen Concentration - - Weight 140 kg (309 lb) 12/18/2022 10:05 AM EST Height 180.3 cm (5' 11 ) 12/18/2022 10:05 AM EST Body Mass Index 43.1 12/18/2022 10:05 AM EST Plan of Treatment Health Maintenance Due Date Last Done Comments Pneumococcal Vaccine: Peds ( 0 to 5 Years) and At-Risk Patients (6 to 49 Years) (1 of 2 - PCV) 2015 Influenza Vaccine (#1) 2025 07/09/2013 Hepatitis B Vaccine Completed 1996, 1996, 1996 Insurance [facility] Medicaid Care Teams Recreation Clerk Relationship Specialty Start Date End Date Jeanette Martinez MD [facility] [id number] [place], [place] PCP - General Internal Medicine 06/27/22
--- OUTSIDE RECORDS SUMMARY | 2025-07-02 12:48 | XMS_ITS | Clinical Summary ---
Author Organization [facility] Address [address] [place] [id number] Phone Care Team Providers Care Wholesale Loan Processor Name Role Phone Unavailable Primary Care Provider Unavailabl e Immunizations Immunization Administration Dates Next Due DTP 11/05/1997,1996,1996 DTaP 5 05/22/2000,11/05/1997,1996 HPV, Quadrivalent 05/07/2014,07/09/2013,01/07/20 13 Hep A, ped/adol 05/09/2015,05/07/2014 Hep B, ped/adol 1996,1996,1996 Hib (PRP-T) 07/29/1997, 7,1996, 996 IPV 05/22/2000 Influenza, intranasal, trivalent 07/09/2013 MMR 05/22/2000,1997 Meningococcal Conj (Menactra) MCV4P 05/09/2015,0 05/16/2007 OPV 1996,1996,1996 Tdap 05/16/2007 Varicella 03/05/1997 Family History Relation Name Status Comments Father Father: Obesity Half-Brother Alive Half brother (M ): Alive and well Mother Mother: Excema Other Family history of *Dental caries, Family history of Migraines, Family history of Diabetes mellitus, Family history of *CVA/Stroke, Family history of Hyperlipidemia, Family history of Cancer, breast, Family history of Asthma, Family history of ADD/ADHD, Family history of *Sudden /NE under 55, Family history of *Heart Disease Sister Alive Sister: Diabete s mellitus Social History Tobacco Use Types Packs/Day Years Used Date Smoking Tobacco: Unknown Comments:Unknown if ever smo ked Sex and Gender Information Value Date Recorded Sex Assigned at Not on file Legal Sex Male 5:09 PM EDT Gender Identity Not on file Sexual Orientation Not on file Last Filed Vital Signs Vital Sign Reading Time Taken Comments Blood Pressure 128/78 05/15/2016 12:00 AM EDT Pulse 69 05/15/2016 12:00 AM EDT Temperature 37.2 C (99 F) 05/04/2014 12:00 AM EDT Respiratory Rate - - Oxygen Saturation - - Inhaled Oxygen Concentration - - Weight 101 kg (222 lb 9.6 oz) 05/15/2016 12:00 A M EDT Height 175.9 cm (5' 9.25 ) 05/15/2016 12:00 AM E DT Body Mass Index 32.63 05/15/2016 12:00 AM EDT Plan of Treatment Health Maintenance Due Date Last Done Comments Varicella Vaccines (1 of 2 - 13+ 2-dose series) 08/06/2013 03/05/1997 DTaP,Tdap,and Td Vaccines (7 - Td or Tdap) 05/16/2017 05/16/2007, 05/22/2000, 11/05/1997, Additional history exists COVID-19 Vaccine ( season) 2024 Influenza Vaccines (#1) 2025 07/09/2013 Hepatitis B Vaccines Completed 1996, 1996, 1996 HIB Vaccines Completed 07/29/1997, 12/19, 1996, Additional history exists IPV Vaccines Completed 05/22/2000, 12/19, 1996, Additional history exists MMR Vaccines Completed 05/22/2000, 1997 HPV Vaccines Completed 05/07/2014, 06/19, 01/07/2013 Hepatitis A Vaccines Completed 05/09/2015, 05/07/20 14 Meningococcal Vaccine Completed 05/09/2015, 007 Men B Vaccine Aged Out No longer elig ible based on patient's age to complete this topic Pneumococcal Vaccine Aged Out No long er eligible based on patient's age to complete this topic
--- NOTE | 2025-07-02 13:00 | MHC.PC.OV ---
Vital Signs 07/02/25 13:01 Height 5 ft 11 in Weight 303 lb 6 oz BMI 42.3 BP 136/90 H Blood Pressure Location Lt brachial Position Sitting Pulse 77 Pulse Source Pulse Oximeter Temp 97.1 F Temp Source Temporal Artery Scan Pulse Oximetry (%) 97 Oxygen Delivery Method Room Air Intake Visit Reasons: Annual Exam Intake Note: Patient is here today for a physical. Double Bottom Driver Required: No Ehs Engineer: Not Required per policy Accompanied by: Self / Same As Patient Allergies house dust Allergy (Mild, Verified 07/02/25 13:01) Sneezing, sore throat Medication List - Last Reconciled 07/02/25 by Jeanette Martinez MD blood pressure monitor (Blood Pressure Kit) As directed clotrimazole 1% 1 appl topical BID 4 weeks triamcinolone acetonide 0.5% 1 appl topical BID Tobacco use date assessed: 07/02/25 Dental Screening Dental Screen Date: 07/02/25 Did you have a dental visit in the last 12 months?: No Did you have a dental problem in the last 6 months where you did not have access to dental care?: No Was dental information given to patient?: No HPI Annual Exam HPI Details PAtient has good BP at home, waking up in cold sweats PFSH Medical History (Updated 07/02/25 @ 13:24 by Jeanette Martinez MD) Left kidney mass Hearing difficulty Tinea cruris Laceration of left knee with foreign body Seizures Inverse psoriasis Insomnia Obesity (BMI 30-39.9) Erectile dysfunction No known health problems Surgical History No pertinent past surgical history Family History Maternal Grandmother Heart attack Paternal Grandmother Breast cancer Other Diabetes Hypertension Social History (Updated 07/02/25 @ 13:29 by Jeanette Martinez MD) Housing: Apartment Alcohol intake: current Alcohol intake frequency: a few times a week Comment: 1-2 a week- shots Patient Tobacco Use Status: Former Tobacco user Tobacco use type: Cigarette Years Smoked: quit 6 week week and cigarettes 20 years old stopped, e-Cigarette/Vaping Use: Currently Using Second Hand Smoke Exposure: Yes Substance Use Type: Marijuana service: No Current occupational status: employed Cognitive needs: No Hearing needs: No Vision needs: Yes (Glasses) Questionnaire PHQ-9 Over the last 2 weeks, how often have you been bothered by any of the following problems? 1. Little interest or pleasure in doing things: not at all 2. Feeling down, depressed, or hopeless: more than half the days 3. Trouble falling or staying asleep, or sleeping too much: nearly every day 4. Feeling tired or having little energy: nearly every day 5. Poor appetite or overeating: more than half the days 6. Feeling bad about yourself - or that you are a failure or have let yourself or your family down: several days 7. Trouble concentrating on things, such as reading the newspaper or watching television: several days 8. Moving or speaking so slowly that other people could have noticed. Or the opposite - being so fidgety or restless that you have been moving around a lot more than usual: not at all 9. Thoughts that you would be better off or of hurting yourself in some way: not at all Total score: 12 Depression Screening Interpretation: Positive Depression Screening Done: Yes Source: Developed by Drs. Brady Garibay, Jodi Gill, Abdi Hardy and colleagues, with an educational trinity from [employer]. Thrive Questionnaire Date Thrive assessed: 07/02/25 I am a: Patient What is your living situation today?: I have a place to live, but I am worried about losing it in the future Within the past 12 months, did the food you bought not last and you didn't have the money to get more?: Sometimes True Within the past 12 months, did you worry whether your food would run out before you got money to buy more?: I choose not to answer this question Do you have trouble paying for medicines?: No Do you have trouble getting transportation to medical appointments?: Yes Do you have trouble paying your heating and electricity bill?: I choose not to answer this question Do you have trouble taking care of your child, family member or friend?: I choose not to answer this question Do you have trouble with day-to-day activities such as bathing, preparing meals, shopping, managing finances, etc.?: I choose not to answer this question Are you currently unemployed and looking for a job?: No Are you interested in more education?: No Please select the resources that you would like help with: None Currently or been in a relationship where the following occur: I choose not to answer THRIVE Score: 3 AUDIT C Alcohol Use Questionnaire (AUDIT-C) 1. How often do you have a drink containing alcohol?: Monthly or less 2. How many drinks containing alcohol do you have on a typical day when you are drinking?: 3 or 4 3. How often do you have six or more drinks on one occasion?: Never Total Score: 2 LYRIC-7 AMB Questionnaire LYRIC-7 Date LYRIC - 7 assessed: 07/02/25 Feeling nervous, anxious, or on edge: 3 = Nearly every day Not being able to stop or control worryin = Several days Worrying too much about different things: 1 = Several days Trouble relaxin = Several days Being so restless that it is hard to sit still: 1 = Several days Becoming easily annoyed or irritable: 1 = Several days Feeling afraid as if something awful might happen: 1 = Several days Total LYRIC-7 score (0-4 normal; 5-9 mild; 10-14 moderate; 15-21 severe): 9 Source: Developed by Drs. Brady Garibay, Jodi Gill, Abdi Hardy and colleagues, with an educational trinity from [employer]. Review of Systems Const Denies poor appetite and Denies weakness Eyes Denies no additional complaints ENT Reports Normal hearing present, Denies dizziness, Denies nasal congestion, Denies tinnitus and Denies sore throat Card Denies chest pain, Denies syncope, Denies rapid heart rate and Denies dyspnea Resp Denies cough and Denies dyspnea GI Denies change in stool character, Reports constipation, Denies diarrhea, Denies nausea and Denies vomiting Denies dysuria and Denies urinary frequency Neuro Reports Normal hearing present, Denies confusion, Denies dizziness, Denies syncope and Denies weakness Psych Denies confusion Physical exam (Primary Care) Vital Signs: Last Vital Signs Temp 97.1 F 07/02/25 13:01 Pulse 77 07/02/25 13:01 BP 136/90 H 07/02/25 13:01 Pulse Ox 97 07/02/25 13:01 Oxygen Delivery Method Room Air 07/02/25 13:01 BMI result Body Mass Index 42.3 Tobacco/Smoking Status: Tobacco use Status Tobacco use date assessed 07/02/25 07/02/25 13:09 Patient Tobacco Use Status Former Tobacco user 07/02/25 13:29 Tobacco use type Cigarette 07/02/25 13:29 e-Cigarette/Vaping Use Currently Using 07/02/25 13:29 PHQ-9: PHQ-9 Score PHQ-9: Total score 12 07/02/25 13:21 Depression Screening Interpretation: Positive Thrive Assessment: Date of Thrive Assessment Date Thrive assessed 07/02/25 07/02/25 13:09 Currently or been in a relationship where the following occur: I choose not to answer Const General: No confusion Orientation/consciousness: No confusion HENMT Head: Yes normocephalic Ears: external ears normal and TM's normal bilaterally Face and sinus: Yes normal facial exam Mouth: moist mucous membranes Throat: Yes tonsils normal Eyes Conjunctivae: conjunctivae normal Pupils: Equal, round and reactive pupils present and Pupil accommodation reflex normal Direct Ophthalmoscopy: normal light reflex Neck Neck: No lymphadenopathy Thyroid: Thyroid normal Chest Chest palpation & inspection: normal inspection of the chest Resp Effort & Inspection: normal respiratory effort and no audible wheezes Auscultation: clear to auscultation bilaterally, no crackles, no wheezes and lung sounds not diminished Cardio Rate: regular rate Rhythm: regular rhythm Peripheral pulses: radial pulses present and dorsalis pedis present GI Palpation (GI): no masses Auscultation: normal bowel sounds and normoactive bowel sounds Rectal Exam - Male: Yes deferred Skin General skin exam: no rashes or lesions noted Rashes: no rashes Neuro General: No confusion Cranial nerves: Yes Equal, round and reactive pupils present and Yes Normal hearing present Cognition (Neuro): normal cognition Gait exam (Neuro): Normal gait present Motor exam (neuro): 5/5 motor strength present throughout Deep tendon reflexes (DTR's): Right brachioradialis reflex intensity grade: 2+, Left brachioradialis reflex intensity grade: 2+, Right patellar reflex intensity grade: 2+ and Left patellar reflex intensity grade: 2+ Extrem General: No edema Coding Level of Care Code Est Pt Prev Care [id number]([id number]) Diagnoses Annual physical exam Z00.00 Hepatic steatosis K76.0 Impaired fasting blood sugar R73.01 Morbidly obese E66.01 Generalized anxiety disorder F41.1 White coat syndrome with high blood pressure but without hypertension R03.0 Assessment & Plan Assessment & Plan (1) Annual physical exam: Code(s): Z00.00 - Encounter for general adult medical examination without abnormal findings Category: Medical Plan: Patient is advised to eat healthy, keep well hydrated, keep active and have adequate sleep. (2) Hepatic steatosis: Code(s): K76.0 - Fatty (change of) liver, not elsewhere classified Category: Medical Plan: Low-fat diet and exercise (3) Impaired fasting blood sugar: Code(s): R73.01 - Impaired fasting glucose Category: Medical Plan: Decrease the amount of carbohydrate intake, pasta, bread, rice and potatoes are all sugar and that is aside from all the sweet stuff, remember that fruits are good but they are Sweet also. (4) Morbidly obese: Code(s): E66.01 - Morbid (severe) obesity due to excess calories Category: Medical Plan: Diet and exercise (5) Generalized anxiety disorder: Code(s): F41.1 - Generalized anxiety disorder Category: Medical Plan: Stable (6) White coat syndrome with high blood pressure but without hypertension: Code(s): R03.0 - Elevated blood-pressure reading, without diagnosis of hypertension Category: Medical Plan: PAtient states BP at home is good advise to monitor regularly Plan History of Present Illness The patient is a 30-year-old male presenting for a follow-up physical examination and management of chronic conditions. The patient has a history of morbid obesity, which has been a persistent issue impacting his overall health. He reports engaging in limited physical activity, primarily walking occasionally, and has not been attending the gym regularly due to feelings of depression and lack of motivation. The patient acknowledges the need for lifestyle changes but has struggled with consistent implementation. The patient has a history of seizure disorder, which is currently stable with no recent episodes reported. He is not on any regular medication for this condition and has not experienced any recent changes in symptoms. The patient also has generalized anxiety disorder, which contributes to his stress levels and may affect his blood pressure readings. He has not been actively seeking counseling or therapy, as previous attempts were not beneficial. The patient has impaired glucose tolerance, with previous blood work indicating mildly elevated blood sugar levels. He has been advised to follow a no-fat diet and engage in regular exercise to manage this condition. Hepatic steatosis is another concern, with the patient being advised to monitor his liver health closely. He has been informed about the potential impact of alcohol consumption on liver health and advised to limit intake. The patient has a history of thrombocytosis, noted in previous blood work, but no active symptoms related to this condition. Hyperlipidemia is present, with elevated cholesterol and triglyceride levels noted in past tests. The patient has been advised to adhere to dietary modifications to manage lipid levels. Eczema has been flaring up recently, with affected areas identified during the examination. The patient has been prescribed topical treatments and advised on proper usage to manage symptoms. Health Maintenance - Blood pressure monitoring advised, with emphasis on home measurements to avoid white coat hypertension. - Lifestyle modifications recommended, including a no-fat diet and regular exercise to manage weight and glucose levels. - Alcohol consumption discussed, with advice to limit intake due to potential liver impact. - Eczema management with topical treatments and guidance on proper application. Social History - Substance Use: Reports alcohol consumption once or twice a week, with occasional use of cannabis. - Exercise: Limited physical activity, primarily walking occasionally, with no regular gym attendance. - Family History: Grandmother with a history of heart attack and breast cancer. Review of Systems - Cardiovascular: Reports variable blood pressure readings, denies chest pain or syncope. - Neurological: Reports ringing in the ears, denies dizziness or syncope. - Dermatological: Reports eczema flare-ups, denies other skin issues. - Gastrointestinal: Reports heartburn with certain foods, denies nausea or vomiting. - Respiratory: Denies shortness of breath or cough. - Musculoskeletal: Reports occasional pain in the core and buttocks, denies recent injuries. Physical Exam General: Cooperative, healthy appearing, comfortable, no acute distress and well developed Orientation: Patient oriented x3 Limitations: No limitations Head: Normal to inspection Ears: Hearing grossly normal bilaterally, but patient reports ringing in ears Nose: Normal external nose present Face and sinus: Normal facial exam Eyes: Appearance normal, both eyes and all related structures Neck: Normal visual inspection and Yes full ROM Respiratory: Normal respiratory effort and able to speak in complete sentences. Clear to auscultation bilaterally Cardiovascular: Regular rate and rhythm. Normal S1 and S2 GI: Normal to inspection. Soft to palpation and nontender Skin: No rashes or lesions noted, but patient reports eczema flare-ups on chest and underarms Neuro: Patient oriented x3 Extremities: Normal to inspection Results - Labs: Previous blood work showed mild thrombocytosis and elevated blood sugar levels. - Labs: Elevated cholesterol and triglyceride levels noted in past tests. Plan The patient is advised to continue monitoring blood pressure at home to differentiate between white coat hypertension and true hypertension. Lifestyle modifications, including a no-fat diet and regular exercise, are recommended to manage weight, glucose levels, and lipid profile. The patient is advised to limit alcohol consumption due to its potential impact on liver health, especially given the presence of hepatic steatosis. For eczema, topical treatments have been prescribed, and the patient is instructed on proper application to manage flare-ups. Follow-up blood tests are ordered to reassess glucose levels, lipid profile, and liver function, with fasting required for accurate results. Patient was informed and verbally consented to the use of an ambient scribe for clinic note documentation during this visit. Discussion Notes I discussed with the patient the importance of monitoring blood pressure at home to distinguish between white coat hypertension and true hypertension. We talked about lifestyle changes, emphasizing a no-fat diet and regular exercise to help manage weight and improve glucose and lipid levels. I advised the patient to limit alcohol intake due to its potential impact on liver health, particularly with existing hepatic steatosis. For eczema, I prescribed topical treatments and explained the correct application to manage symptoms effectively. I ordered follow-up blood tests to check glucose levels, lipid profile, and liver function, instructing the patient to fast for accurate results. Patient Instructions - Monitor blood pressure at home regularly and record readings. - Follow a no-fat diet and engage in regular exercise to manage weight and improve health. - Limit alcohol consumption to protect liver health. - Apply prescribed topical treatments for eczema as directed. - Complete follow-up blood tests, ensuring to fast beforehand. Orders: Orders Complete Blood Count Auto Diff Today K76.0 - Fatty (change of) liver, not elsewhere classified Comprehensive Met. Panel Today K76.0 - Fatty (change of) liver, not elsewhere classified Thyroid Stimulating Hormone Today K76.0 - Fatty (change of) liver, not elsewhere classified Vitamin B12 and Folate Today K76.0 - Fatty (change of) liver, not elsewhere classified Free T4 (Free Thyroxine) Today K76.0 - Fatty (change of) liver, not elsewhere classified Lipid Panel Today E78.00 - Pure hypercholesterolemia, unspecified, K76.0 - Fatty (change of) liver, not elsewhere classified UA w Microscopic Today K76.0 - Fatty (change of) liver, not elsewhere classified Hemoglobin A1c Today K76.0 - Fatty (change of) liver, not elsewhere classified Medications: Refilled triamcinolone acetonide 0.5% 1 appl topical BID 30 grams 0RF L30.9 - Dermatitis, unspecified clotrimazole 1% 1 appl topical BID 45 grams 0RF 4 weeks B35.6 - Tinea cruris
[2025-07-02 13:01] VITALS: BP 136/90; PULSE 77; TEMP 36.2; O2SAT 97; BMI 42.3
== END 2025-07-02 13:43 | disposition home or self-care (01) ==
LOC: HO.HMCH 12:46
PROVIDERS: PCP Internal Medicine; Visit Provider Internal Medicine
DX: Z00.00 Encounter for general adult medical examination without abnormal findings (principal); K76.0 Fatty (change of) liver, not elsewhere classified; E66.01 Morbid (severe) obesity due to excess calories; Z68.41 Body mass index [BMI] 40.0-44.9, adult; R73.01 Impaired fasting glucose; F41.1 Generalized anxiety disorder; R03.0 Elevated blood-pressure reading, without diagnosis of hypertension

== ENCOUNTER → 2025-07-02 12:45 | Outpatient (BNVA) | payer OTHER, SELFPAY | PROVIDERS: PCP Internal Medicine; Visit Provider Internal Medicine | DX: Z00.00 Encounter for general adult medical examination without abnormal findings (principal); K76.0 Fatty (change of) liver, not elsewhere classified; R73.01 Impaired fasting glucose; E66.01 Morbid (severe) obesity due to excess calories; F41.1 Generalized anxiety disorder; R03.0 Elevated blood-pressure reading, without diagnosis of hypertension; G40.909 Epilepsy, unspecified, not intractable, without status epilepticus; E78.5 Hyperlipidemia, unspecified; L30.9 Dermatitis, unspecified; B35.6 Tinea cruris; Z68.41 Body mass index [BMI] 40.0-44.9, adult | CPT/HCPCS: 99395 ==